=== PATIENT | female | born 1935 | race Caucasian/White ===

== ENCOUNTER → 2018-03-25 12:10 | Outpatient (CLI) | payer MEDICARE, OTHER, SELFPAY ==
[2018-03-25 13:32] LABS: Albumin, Serum 3.9 g/dL (3.2-5.0); BUN 35 mg/dL (7-18); BUN/Creat Ratio 20.1 RATIO (10-20); Calcium,Total 10.5 mg/dL (8.5-10.1); Chloride 101 mmol/L (98-107); Creatinine, Serum 1.74 mg/dL (0.55-1.02); EST Glomerular Filtration Rate 30 mL/min (>60); Est Glom Filt Rate - Afr Amer 36 mL/min (>60); Glucose 132 mg/dL (74-106); Phosphorus 2.9 mg/dL (2.5-4.9); Sodium Level 136 mmol/L (136-145)
== END ==
PROVIDERS: Visit Provider Internal Medicine Nephrology
DX: N17.9 Acute kidney failure, unspecified (principal)
CPT/HCPCS: 36415; 80069

== ENCOUNTER → 2018-09-09 10:30 | Outpatient (CLI) | payer MEDICARE, SELFPAY ==
[2018-09-09 13:45] LABS: Microalbumin,Random Urine 65.7 mg/L (NO RANGE EST.)
== END ==
PROVIDERS: Visit Provider Internal Medicine Nephrology
DX: E11.9 Type 2 diabetes mellitus without complications (principal)
CPT/HCPCS: 82043; 82570

== ENCOUNTER → 2021-07-26 13:40 | Outpatient (CLI) | payer MEDICARE, OTHER, SELFPAY ==
[2021-07-26 17:00] LABS: Vitamin D,25 Hydroxy 40.9 ng/mL
[2021-08-01 14:09] LABS: Vitamin D 1,25-Dihydroxy 19.7 pg/mL (19.9-79.3)
== END ==
PROVIDERS: Visit Provider Internal Medicine Nephrology
DX: E83.52 Hypercalcemia (principal)
CPT/HCPCS: 36415; 82306; 82652

== ENCOUNTER 2021-11-02 11:00 | Outpatient (RCR) | payer MEDICARE, OTHER, SELFPAY ==
[2021-10-19 10:31] VITALS: BP 124/73; PULSE 92; TEMP 36.1
--- NOTE | 2021-10-19 10:58 | HP.PCM_ITS ---
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 Following replacement of her hip she underwent therapy at [facility] where the therapist noticed some cracking on her right heel. Patient's son looked at the right heel and noticed a dry darkened eschar at the posterior aspect of the of the heel. Her son states that his mom does not wear any shoes or things that rub the back of her heel. He states that she sits in a recliner with her feet dangling off the edge with no pressure to the heel. He states when she sleeps it is in a hospital bed and she will occasionally dangle the right foot off of the bed. They were instructed by the therapist to be seen in the wound care center for close following. She admits to being a diabetic and demonstrates no localized signs of infection about the left heel and denies any constitutional symptoms. ROS Constitutional Constitutional: Denies change in weight, chills, fatigue or fever(s) Eyes Eyes: Denies double vision, dry eyes or eye pain ENT HEENT: Denies ear pain, headache(s), nasal congestion or nasal discharge Cardiovascular Cardiovascular: Denies chest pain, claudication or dyspnea Respiratory/Chest Respiratory/Chest: Denies cough, shortness of breath at rest or wheezing Gastrointestinal Gastrointestinal: Denies abdominal pain, constipation, diarrhea, nausea or vomiting Genitourinary Genitourinary: Denies dysuria, hematuria, urinary hesitancy or urinary urgency Musculoskeletal Musculoskeletal: Denies joint pain, joint stiffness, joint swelling or tingling Integumentary Integumentary: Denies alopecia, jaundice, nail changes or rash Neurologic Neurologic: Denies memory loss, numbness, seizures, syncope or weakness Psychiatric Psychiatric: Denies anxiety or depression Endocrine Endocrinology: Denies cold intolerance, heat intolerance, polydipsia or polyuria Hematologic/Lymphatic Hematologic/Lymphatic: Denies easy bleeding or easy bruising Vital Signs Vital Signs Vital Signs: 10/19/21 10:31 Temperature 97.0 F L Temperature Source Temporal Pulse Rate 92 Blood Pressure 124/73 H Blood Pressure Mean 90 Blood Pressure Source Monitor Blood Pressure Position Sitting Blood Pressure Location Left Arm Physical Exam Const alert, oriented x3 and no apparent distress General Appearance: cooperative and comfortable HEENT normocephalic Eyes General Eye: normal appearance of both eyes Neck General: normal visual inspection Lymph Lymphatic: no lymphadenopathy noted and no lymphedema noted Resp normal respiratory effort Cardio regular rate and regular rhythm Extremity Peripheral Pulses: Yes posterior tibial pulses present and dorsalis pedis pulses present Skin no rashes or lesions noted, skin turgor normal and no jaundice Skin Narrative: Eschar noted to the right posterior heel. Webspaces are clean, dry, and intact. General Skin Exam: eschar Wound Narrative: Right posterior heel stable eschar with no erythema, no malodor, no purulent drainage, or localized signs of infection. Eschar bed demonstrates no palpable fluctuance. No pain to palpation to the eschar or surrounding skin. Skin surrounding ulceration is intact/atrophic and healthy- appearing. Neuro oriented x3 and moves all extremities Motor Exam: strength 5/5 throughout and clonus absent Debridement Note Debridement Note No debridement was completed: No debridement was completed today Post-Debridement Measurements and Additional Note: Post-Debridement Measurements/Treatment RADHA - Nurse 1 - General Ulcer Assessment Start: 10/19/21 10:30 Freq: Status: Active Protocol: AYSE Activity Type Activity Date Activity User E-Sign Co-Sign Detail Recorded Client Recorded Date Recorded By Document 10/19/21 10:31 JONO [id number] 10/19/21 10:45 JONO 10/19/21 10:31 - Today's Visit Information Type of service Initial Visit Arrival Mode Wheelchair Patient Identification Verified (Name & Yes ) Finger Stick Blood Sugar(mg/dl) (if 201 indicated): Blood Sugar Stated by Patient Vital Signs Temperature (97.8 F-99.1 F) 97.0 F L Temperature Source Temporal Pulse Rate (60-100) 92 Pulse Location Monitor Blood Pressure (90/60-120/80) 124/73 H Blood Pressure Mean 90 Source Monitor Position Sitting Blood Pressure Location Left Arm History Since Last Visit- (Skip if this is Patient's initial visit) Have you changed medications since your No last visit? Any new allergies or adverse reactions No Had a fall/change in ADL's that may No increase risk of falls Signs or symptoms of abuse and/or No neglect since last visit Have you been in the hospital since your No last visit? Has dressing in place as prescribed Yes Has compression in place as prescribed N/A Has offloadiing in place as prescribed N/A Experienced any changes in pain level or No management Left Footwear Regular Shoe Right Footwear Regular Shoe Pain Scale: 0-10 Numeric Is Patient Pain Free? Yes - Nurse 1 - General Ulcer Measurement Start: 10/19/21 10:30 Freq: Status: Active Protocol: Activity Type Activity Date Activity User E-Sign Co-Sign Detail Recorded Client Recorded Date Recorded By Document 10/19/21 10:31 JONO [id number] 10/19/21 10:45 JONO 10/19/21 10:31 Wound Center Nurse 1 #1 Right Heel Cluster -Current Size (cm) - Length 3.5 -Current Size (cm) - Width 2 -Current Size (cm) - Depth 0.1 -Total Square Cm 7.0 -Exudate Amt Small -Exudate Type Serosanguineous -Wound Margin Distinct, Outline Attached -Necrosis Amt Large (67-100%) -Necrotic Tissue Type Eschar -Texture (Kendy-wound Skin Appearance) Assessed, Scarring -Moisture (Kedny-wound Skin Appearance) No Abnormality, Assessed -Color (Kendy-wound Skin Appearance) No Abnormality, Assessed -Temperature (Kendy-wound Skin No Abnormality Appearance) (Pt Warm) -Tenderness on Palpation (Kendy-wound No Skin Appearance) -Ulcer Cleansing Rinsed/ Irrigated with Saline -Foul Odor after Cleansing No -Anesthetic Used 4% Lidocaine Solution Right Calf (cm) 33.6 Right Ankle (cm) 19.1 Point of measurement (cm from the medial 29.6 instep) Point of Measurement (cm from the medial 19.9 instep) Assessment/Plan Assessment/Plan (1) Decubitus ulcer of right heel, stage 3: CODE(S): L89.613 - Pressure ulcer of right heel, stage 3 (2) Diabetes mellitus with diabetic polyneuropathy: CODE(S): E11.42 - Type 2 diabetes mellitus with diabetic polyneuropathy PLAN: This is an 86-year-old female who was seen in the wound care center for a decubitus ulcer of the right heel, unstageable secondary to eschar, likely stage III complicated by 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 Ulceration site demonstrates no localized signs of infection or palpable fluctuance. No pain to the ulceration site at the posterior aspect of the heel just inferior to the insertion of the Achilles tendon. I discussed the use of the enzymatic debrider Santyl with the patient and her son today. They are instructed to apply a small amount that is nickel sized in thickness to the ulceration site daily with moistened gauze and dry sterile dressing. I am prescribing Santyl 250 units/gram, dispense one 90 g tube to be applied daily to the wound site. I discussed the importance of offloading of the right heel while she is in her hospital bed sleeping. I instructed the patient to purchase soft foam offloadi ng boots to be worn on both feet while she remains in bed. I discussed until he gets the offloading boots that she is to place a soft pillow under her legs with no pressure her heels while she remains in bed. Patient and son voiced understanding of this. I will continue to follow and monitor her for any signs and changes as she continues to use her Santyl daily. Debridement will be performed once eschar has undergone sufficient enzymatic debridement. I discussed with the patient and her son signs of a progressing infection. They are to observe for any redness that moves up the leg, purulent drainage from the wound site, malodor from the wound site, or if she experiences any nausea, vomiting, fever, chills that these are signs of a progressing infection and she is to report to the ED. Patient and son voiced understanding of this. I reviewed and discussed his case today. Debridement was performed today as noted in the clinical panel to all of the ulcer sites. The following work up and care recommendations were made: Dressing: Santyl and dry sterile dressings, change daily Wash: Soap and water Tissue growth optimization: Santyl Offload: Elevation of the lower extremities and foam offloading boot to both heels Vascular: Palpable pedal pulses Edema: No soft tissue edema, patient instructed to elevate extremities when at rest Infection: No localized signs of infection Pain: Patient may take [id number] Tylenol extra strength for any pain or discomfort Host factors: Diabetes mellitus type 2 with peripheral polyneuropathy, recent hip replacement, pressure to the heel I answered all the patient's questions. To return to the wound healing center in 1 week or call sooner if the patient has any questions or concerns. The problems addressed require a low medical decision making level which includes two or more minor problems, a stable chronic illness, or an acute uncomplicated illness or injury. The medical decision making level is low. There is noted low risk of morbidity after considering this treatment plan and diagnostic data. Note: [email or web address] speech recognition motion picture set grip software was used to create portions of this document. Sound-alike and misspelled words, as well as other motion picture set grip errors may be contained in the documentation.
[2021-11-02 11:29] VITALS: BP 122/74; PULSE 74; TEMP 35.6
--- NOTE | 2021-11-02 12:56 | PN.PCM_ITS ---
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 Following replacement of her hip she underwent therapy at [facility] where the therapist noticed some cracking on her right heel. Patient's son looked at the right heel and noticed a dry darkened eschar at the posterior aspect of the of the heel. Her son states that his mom does not wear any shoes or things that rub the back of her heel. He states that she sits in a recliner with her feet dangling off the edge with no pressure to the heel. He states when she sleeps it is in a hospital bed and she will occasionally dangle the right foot off of the bed. They were instructed by the therapist to be seen in the wound care center for close following. She admits to being a diabetic and demonstrates no localized signs of infection about the left heel and denies any constitutional symptoms. Subjective Subjective This is an 86-year-old female who presents for follow-up of a right posterior heel ulceration. She is accompanied by her son today who states they have been continuing to apply the Santyl to the back of the heel at the eschar site. They are continuing with the offloading by the waffle boots as instructed. Her son states that he notices the ulceration site is improving. She denies any nausea, vomiting, fever, chills, shortness of breath, or other constitutional symptoms today. Objective Data Objective Data Vital Signs: Vital Signs Temp Pulse BP 96.0 F L 74 122/74 H 11/02/21 11:29 11/02/21 11:29 11/02/21 11:29 Physical Exam Const alert, oriented x3 and no apparent distress General Appearance: cooperative and comfortable HEENT normocephalic Eyes General Eye: normal appearance of both eyes Neck General: normal visual inspection Lymph Lymphatic: no lymphadenopathy noted and no lymphedema noted Resp normal respiratory effort Cardio regular rate and regular rhythm Skin no rashes or lesions noted, skin turgor normal and no jaundice Skin Narrative: Eschar noted to the right posterior heel. Webspaces are clean, dry, and intact. General Skin Exam: eschar Wound Narrative: Right posterior heel stable decreasing eschar and fibrous ti ssue with no erythema, no malodor, no purulent drainage, or localized signs of infection. Eschar bed demonstrates no palpable fluctuance. No pain to palpation to the eschar or surrounding skin. Skin surrounding ulceration is intact/atrophic and healthy-appearing. Neuro oriented x3 and moves all extremities Motor Exam: strength 5/5 throughout and clonus absent Debridement Note Debridement Note Wound debrided: Right posterior heel Laterality: Right Wound Grade/Stage: Rasmussen stage I Type of Debridement: Excisional debridement Anesthesia Used: 4% Lidocaine Solution Depth: Down to and including healthy tissue and in the subcutaneous layer Percentage of wound debrided: 100 Instrument Used: 3mm curette Tissue Removed: Fibrous, devitalized subcutaneous, biofilm, slough Severity: Fat Layer Exposed Amount of bleeding with debridement: Mild Bleeding Controlled with: Compression and gauze Patient tolerated procedure: Patient tolerated procedure well Post-Debridement Measurements and Additional Note: Post-Debridement Measurements/Treatment - Nurse 1 - General Ulcer Assessment Start: 10/19/21 10:30 Freq: Status: Active Protocol: AYSE Activity Type Activity Date Activity User E-Sign Co-Sign Detail Recorded Client Recorded Date Recorded By Document 10/19/21 10:31 [id number] 10/19/21 10:45 KR Document 11/02/21 11:29 [id number] 11/02/21 11:30 KR 10/19/21 11/02/21 10:31 11:29 - Today's Visit Information Type of service Initial Visit Follow-up Visit (Physician/INJECTOR ASSEMBLER ) Arrival Mode Wheelchair Wheelchair Accompanied by son Patient Identification Verified (Name & Yes Yes ) Finger Stick Blood Sugar(mg/dl) (if 201 indicated): Blood Sugar Stated by Patient Vital Signs Temperature (97.8 F-99.1 F) 97.0 F L 96.0 F L Temperature Source Temporal Temporal Pulse Rate (60-100) 92 74 Pulse Location Monitor Monitor Blood Pressure (90/60-120/80) 124/73 H 122/74 H Blood Pressure Mean (mm Hg) 90 90 Source Monitor Monitor Position Sitting Sitting Blood Pressure Location Left Arm Right Arm History Since Last Visit- (Skip if this is Patient's initial visit) Have you changed medications since your No No last visit? Any new allergies or adverse reactions No No Had a fall/change in ADL's that may No No increase risk of falls Signs or symptoms of abuse and/or No No neglect since last visit Have you been in the hospital since your No No last visit? Has dressing in place as prescribed Yes Yes Has compression in place as prescribed N/A N/A Has offloadiing in place as prescribed N/A N/A Experienced any changes in pain level or No No management Left Footwear Regular Shoe Regular Shoe Right Footwear Regular Shoe Regular Shoe Pain Scale: 0-10 Numeric Is Patient Pain Free? Yes Yes WC - Nurse 1 - General Ulcer Measurement Start: 10/19/21 10:30 Freq: Status: Active Protocol: Activity Type Activity Date Activity User E-Sign Co-Sign Detail Recorded Client Recorded Date Recorded By Document 10/19/21 10:31 JONO [id number] 10/19/21 10:45 KR Document 11/02/21 11:29 KR [id number] 11/02/21 11:30 KR 10/19/21 11/02/21 10:31 11:29 Wound Center Nurse 1 #1 Right Heel Cluster -Current Size (cm) - Length 3.5 0.1 -Current Size (cm) - Width 2 0.1 -Current Size (cm) - Depth 0.1 0.1 -Total Square Cm 7.0 0.01 -Exudate Amt Small None Present -Exudate Type Serosanguineous Serosanguineous -Wound Margin Distinct, Distinct, Outline Outline Attached Attached -Granulation Amt Small (1-33%) -Granulation Quality Pale -Necrosis Amt Large (67-100%) None Present (0 %) -Necrotic Tissue Type Eschar -Texture (Kendy-wound Skin Appearance) Assessed, Assessed, Scarring Scarring -Moisture (Kendy-wound Skin Appearance) No Abnormality, Assessed,Dry/ Assessed Scaly -Color (Kendy-wound Skin Appearance) No Abnormality, No Abnormality, Assessed Assessed -Temperature (Kendy-wound Skin No Abnormality No Abnormality Appearance) (Pt Warm) (Pt Warm) -Tenderness on Palpation (Kendy-wound No No Skin Appearance) -Ulcer Cleansing Rinsed/ Rinsed/ Irrigated with Irrigated with Saline Saline -Foul Odor after Cleansing No No -Anesthetic Used 4% Lidocaine 5% Lidocaine Solution Gel Right Calf (cm) 33.6 Right Ankle (cm) 19.1 Point of measurement (cm from the medial 29.6 instep) Point of Measurement (cm from the medial 19.9 instep) WC - Nurse 2 - General Ulcer CM Notes Start: 10/19/21 10:30 Freq: Status: Active Protocol: Activity Type Activity Date Activity User E-Sign Co-Sign Detail Recorded Client Recorded Date Recorded By Document 10/19/21 15:46 PL [id number] 10/19/21 15:46 PL 10/19/21 15:46 Wound Center Nurse 2 -Procedure Performed No -Tissue Removed Subcutaneous Pain Scale: 0-10 Numeric Is Patient Pain Free? Yes WC - Nurse 3 - General Ulcer D/C NN Start: 10/19/21 10:30 Freq: Status: Active Protocol: Activity Type Activity Date Activity User E-Sign Co-Sign Detail Recorded Client Recorded Date Recorded By Document 10/19/21 12:03 KR [id number] 10/19/21 12:03 KR Document 11/02/21 12:05 KR [id number] 11/02/21 12:05 KR 10/19/21 11/02/21 12:03 12:05 Wound Care Nurse 3 #1 Right Heel Cluster -Ulcer Cleansing Rinsed/ Rinsed/ Irrigated with Irrigated with Saline Saline -Primary Dressing Applied C Hydrogel ($) C Hydrogel ($) -Primary Dressing Covered/Secured with Dry Gauze,Dry Dry Gauze,Dry Gauze & Roll Gauze & Roll Gauze,Secured Gauze,Secured with Tape with Tape Pain Scale: 0-10 Numeric Is Patient Pain Free? Yes Yes WC - Visit Discharge Discharge Condition Stable Stable Ambulatory Status Wheelchair Wheelchair Transportation Private Auto Private Auto Accompanied by son son Assessment/Plan Assessment/Plan (1) Decubitus ulcer of right heel, stage 3: CODE(S): L89.613 - Pressure ulcer of right heel, stage 3 (2) Diabetes mellitus with diabetic polyneuropathy: CODE(S): E11.42 - Type 2 diabetes mellitus with diabetic polyneuropathy PLAN: This is an 86-year-old female who was seen in the wound care center for a decubitus ulcer of the right heel, unstageable secondary to eschar, likely stage III complicated by 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 Ulceration site demonstrates no localized signs of infection or palpable fluctuance. They are continuing to apply the Santyl to the ulcerative site and there is noted less eschar today. Ulcerative site sharply debrided with a 3 mm curette to patient tolerance. I discussed the importance of continued offloading of the right heel with soft foam offloading boots while she is in her hospital bed sleeping. Patient and son voiced understanding of this. I will continue to follow and monitor her for any signs and changes as she continues to use her Santyl daily. I discussed with the patient and her son signs of a progressing infection. They are to observe for any redness that moves up the leg, purulent drainage from the wound site, malodor from the wound site, or if she experiences any nausea, vomiting, fever, chills that these are signs of a progressing infection and she is to report to the ED. Patient and son voiced understanding of this. I reviewed and discussed his case today. Debridement was performed today as noted in the clinical panel to all of the ulcer sites. The following work up and care recommendations were made: Dressing: Santyl and dry sterile dressings, change daily Wash: Soap and water Tissue growth optimization: Santyl Offload: Elevation of the lower extremities and foam offloading boot to both heels Vascular: Palpable pedal pulses Edema: No soft tissue edema, patient instructed to elevate extremities when at rest Infection: No localized signs of infection Pain: Patient may take [id number] Tylenol extra strength for any pain or discomfort Host factors: Diabetes mellitus type 2 with peripheral polyneuropathy, recent hip replacement, pressure to the heel I answered all the patient's questions. To return to the wound healing center in 2 weeks or call sooner if the patient has any questions or concerns. Note: [email or web address] speech recognition production coordinator software was used to create portions of this document. Sound-alike and misspelled words, as well as other production coordinator errors may be contained in the documentation.
== END 2021-11-02 23:59 | disposition home or self-care (01) ==
LOC: WC 11:00
PROVIDERS: PCP Preventive Medicine Occupational Medicine; Visit Provider Student in an Organized Health Care Education/Training Program
DX: L89.613 Pressure ulcer of right heel, stage 3 (principal); E11.42 Type 2 diabetes mellitus with diabetic polyneuropathy
CPT/HCPCS: 11042; 99213; G0463

== ENCOUNTER 2021-11-30 10:45 | Outpatient (RCR) | payer MEDICARE, OTHER, SELFPAY ==
[2021-11-03 00:51] VITALS: BP 122/74; PULSE 74; TEMP 35.6
[2021-11-16 11:21] VITALS: BP 125/64; PULSE 88; TEMP 35.7
--- NOTE | 2021-11-16 12:50 | PCM.WC.PN ---
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 Following replacement of her hip she underwent therapy at [facility] where the therapist noticed some cracking on her right heel. Patient's son looked at the right heel and noticed a dry darkened eschar at the posterior aspect of the of the heel. Her son states that his mom does not wear any shoes or things that rub the back of her heel. He states that she sits in a recliner with her feet dangling off the edge with no pressure to the heel. He states when she sleeps it is in a hospital bed and she will occasionally dangle the right foot off of the bed. They were instructed by the therapist to be seen in the wound care center for close following. She admits to being a diabetic and demonstrates no localized signs of infection about the left heel and denies any constitutional symptoms. Subjective Subjective This is an 86-year-old female who presents for follow-up of her right posterior heel ulceration. She is accompanied today by her [id number]. She informs me they are still continuing to apply the Santyl with dressing changes daily to her wound site. They are also still continuing to offload both feet with the waffle boots as instructed. She denies any constitutional symptoms today. She has no other complaints today. Objective Data Objective Data Vital Signs: Vital Signs Temp Pulse BP 96.3 F L 88 125/64 H 11/16/21 11:21 11/16/21 11:21 11/16/21 11:21 Physical Exam Const alert, oriented x3 and no apparent distress General Appearance: cooperative and comfortable HEENT normocephalic Eyes General Eye: normal appearance of both eyes Neck General: normal visual inspection Lymph Lymphatic: no lymphadenopathy noted and no lymphedema noted Resp normal respiratory effort Cardio regular rate and regular rhythm Extremity normal capillary refill, no calf tenderness and no pedal edema Peripheral Pulses: Yes posterior tibial pulses present and dorsalis pedis pulses present Skin no rashes or lesions noted, skin turgor normal and no jaundice Skin Narrative: Mixed eschar and fibrotic tissue noted to the posterior right heel. Surrounding skin is healthy appearing and atrophic. Webspaces are clean, dry, and intact. Wound Narrative: Right posterior heel demonstrates a stable decreasing eschar with mixed fibrotic tissue. There is no localized erythema, no malodor, no purulent drainage, or other localized signs of infection. Ulcerative site demonstrates no palpable fluctuance or crepitus within the tissue. No pain to palpation of the ulcerative wound bed. There is pain to palpation surrounding the ulcerative rim. Surrounding skin is intact/atrophic and healthy appearing Neuro oriented x3 and moves all extremities Motor Exam: strength 5/5 throughout Debridement Note Debridement Note Wound debrided: Right posterior heel Laterality: Right Wound Grade/Stage: Rasmussen stage III Type of Debridement: Excisional debridement Anesthesia Used: 4% Lidocaine Solution Depth: Down to and including healthy tissue and in the subcutaneous layer Percentage of wound debrided: 100 Instrument Used: 3mm curette and #15 blade Tissue Removed: Fibrous, devitalized subcutaneous, biofilm, slough Severity: Fat Layer Exposed Amount of bleeding with debridement: Mild Bleeding Controlled with: Pressure Patient tolerated procedure: Patient tolerated procedure well Post-Debridement Measurements and Additional Note: Post-Debridement Measurements/Treatment WC - Nurse 1 - General Ulcer Assessment Start: 11/16/21 11:21 Freq: Status: Active Protocol: AYSE Activity Type Activity Date Activity User E-Sign Co-Sign Detail Recorded Client Recorded Date Recorded By Document 11/16/21 11:21 ALBER [id number] 11/16/21 11:23 ALBER 11/16/21 11:21 - Today's Visit Information Type of service Follow-up Visit (Physician/JAIL OFFICER ) Arrival Mode Wheelchair Accompanied by daughter Patient Identification Verified (Name & Yes ) Patient Requires Transmission-Based No Precautions Safety Precautions NA Vital Signs Temperature (97.8 F-99.1 F) 96.3 F L Temperature Source Temporal Pulse Rate (60-100) 88 Pulse Location Monitor Blood Pressure (90/60-120/80) 125/64 H Blood Pressure Mean (mm Hg) 84 Source Monitor History Since Last Visit- (Skip if this is Patient's initial visit) Have you changed medications since your No last visit? Any new allergies or adverse reactions No Had a fall/change in ADL's that may No increase risk of falls Signs or symptoms of abuse and/or No neglect since last visit Have you been in the hospital since your No last visit? Has dressing in place as prescribed Yes Has compression in place as prescribed N/A Has offloadiing in place as prescribed N/A Experienced any changes in pain level or No management Left Footwear Slipper Right Footwear Slipper Pain Scale: 0-10 Numeric Is Patient Pain Free? Yes WC - Nurse 1 - General Ulcer Measurement Start: 11/16/21 11:21 Freq: Status: Active Protocol: Activity Type Activity Date Activity User E-Sign Co-Sign Detail Recorded Client Recorded Date Recorded By Document 11/16/21 11:21 AK [id number] 11/16/21 11:23 AK 11/16/21 11:21 Wound Center Nurse 1 #1 Right Heel Cluster -Combined with other wound No -Current Size (cm) - Length 1.4 -Current Size (cm) - Width 1.6 -Current Size (cm) - Depth 0.1 -Total Square Cm 2.24 -Photo Taken No -Epithelialization None Present -Tunneling No -Undermining/Tunneling No -Circular Undermining No -Classification - Thickness Partial Thickness -Change in Wound Grade/Stage No -Exudate Amt Medium -Exudate Type Serosanguineous -Wound Margin Distinct, Outline Attached -Granulation Amt Small (1-33%) -Granulation Quality Pale,Brenda -Slough/Fibrin Yes -Necrosis Amt Medium (34-66%) -Necrotic Tissue Type Adherent Slough -Structure Exposed N/A -Texture (Kendy-wound Skin Appearance) No Abnormality, Assessed -Moisture (Kendy-wound Skin Appearance) Assessed,Dry/ Scaly -Color (Kendy-wound Skin Appearance) Assessed, Erythema -Temperature (Kendy-wound Skin No Abnormality Appearance) (Pt Warm) -Tenderness on Palpation (Kendy-wound No Skin Appearance) -Ulcer Cleansing Rinsed/ Irrigated with Saline -Foul Odor after Cleansing No -Anesthetic Used 5% Lidocaine Gel WC - Nurse 3 - General Ulcer D/C NN Start: 11/16/21 11:21 Freq: Status: Active Protocol: Activity Type Activity Date Activity User E-Sign Co-Sign Detail Recorded Client Recorded Date Recorded By Document 11/16/21 11:59 ML [id number] 11/16/21 12:01 ML 11/16/21 11:59 Wound Care Nurse 3 -Ulcer Cleansing Rinsed/ Irrigated with Saline -Foul Odor after Cleansing No -Other Dressing hydrogel -Primary Dressing Covered/Secured with Dry Gauze & Roll Gauze, Secured with Tape Pain Scale: 0-10 Numeric Is Patient Pain Free? Yes WC - Visit Discharge Discharge Condition Stable Ambulatory Status Wheelchair Transportation Private Auto Medication Reconcilliation completed & No provided to patient/care provider Clinical Summary of Care Provided Yes Assessment/Plan Assessment/Plan (1) Decubitus ulcer of right heel, stage 3: CODE(S): L89.613 - Pressure ulcer of right heel, stage 3 (2) Diabetes mellitus with diabetic polyneuropathy: CODE(S): E11.42 - Type 2 diabetes mellitus with diabetic polyneuropathy PLAN: This is an 86-year-old female who was seen in the wound care center for a decubitus ulcer of the right heel, unstageable secondary to eschar, likely stage III complicated by 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 Ulceration site demonstrates no localized signs of infection or palpable fluctuance. They are continuing to apply the Santyl to the ulcerative site and there is noted less eschar today. Ulcerative site sharply debrided with a 3 mm curette and #15 blade to patient tolerance. I discussed the importance of continued offloading of the right heel with soft foam offloading boots while she is in her hospital bed sleeping. Patient and [id number] voiced understanding of this. I will continue to follow and monitor her for any signs and changes as she continues to use her Santyl daily. I discussed with the patient and her [id number] signs of a progressing infection. They are to observe for any redness that moves up the leg, purulent drainage from the wound site, malodor from the wound site, or if she experiences any nausea, vomiting, fever, chills that these are signs of a progressing infection and she is to report to the ED. Patient and [id number] voiced understanding of this. I reviewed and discussed her case today. Debridement was performed today as noted in the clinical panel to all of the ulcer sites. 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 To return to the wound healing center in 2 weeks or call sooner if the patient has any questions or concerns. Note: [employer] speech recognition hemodialysis charge nurse software was used to create portions of this document. Sound-alike and misspelled words, as well as other hemodialysis charge nurse errors may be contained in the documentation.
[2021-11-30 10:46] VITALS: BP 115/65; PULSE 82; RESP 16; TEMP 35.2
--- NOTE | 2021-11-30 12:08 | PN.PCM_ITS ---
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 Following replacement of her hip she underwent therapy at [facility] where the therapist noticed some cracking on her right heel. Patient's son looked at the right heel and noticed a dry darkened eschar at the posterior aspect of the of the heel. Her son states that his mom does not wear any shoes or things that rub the back of her heel. He states that she sits in a recliner with her feet dangling off the edge with no pressure to the heel. He states when she sleeps it is in a hospital bed and she will occasionally dangle the right foot off of the bed. They were instructed by the therapist to be seen in the wound care center for close following. She admits to being a diabetic and demonstrates no localized signs of infection about the left heel and denies any constitutional symptoms. Subjective Subjective This is an 86-year-old female who presents for follow-up of her right posterior heel ulceration. She is accompanied today by her son. He informs me they are still continuing to apply the Santyl with dressing changes daily to her wound site. They are also still continuing to offload both feet with the waffle boots as instructed. She denies any constitutional symptoms today. She has no other complaints today. Objective Data Objective Data Vital Signs: Vital Signs Temp Pulse Resp BP 95.4 F L 82 16 115/65 11/30/21 10:46 11/30/21 10:46 11/30/21 10:46 11/30/21 10:46 Physical Exam Const alert, oriented x3 and no apparent distress General Appearance: cooperative and comfortable HEENT normocephalic Eyes General Eye: normal appearance of both eyes Neck General: normal visual inspection Lymph Lymphatic: no lymphadenopathy noted and no lymphedema noted Resp normal respiratory effort Cardio regular rate and regular rhythm Extremity normal capillary refill, no calf tenderness and no pedal edema Skin no rashes or lesions noted, skin turgor normal and no jaundice Skin Narrative: Mixed eschar and fibrotic tissue noted to the posterior right heel. Surrounding skin is healthy appearing and atrophic. Webspaces are clean, dry, and intact. Wound Narrative: Right posterior heel demonstrates a stable decreasing eschar with mixed fibrotic tissue. There is no localized erythema, no malodor, no purulent drainage, or other localized signs of infection. Ulcerative site demonstrates no palpable fluctuance or crepitus within the tissue. No pain to palpation of the ulcerative wound bed. There is pain to palpation surrounding the ulcerative rim. Surrounding skin is intact/atrophic and healthy appearing Neuro oriented x3 and moves all extremities Motor Exam: strength 5/5 throughout Debridement Note Debridement Note Wound debrided: Right plantar heel Laterality: Right Wound Grade/Stage: Rasmussen stage III Type of Debridement: Excisional debridement Anesthesia Used: 4% Lidocaine Solution Depth: Down to and including healthy tissue and in the subcutaneous layer Percentage of wound debrided: 100 Instrument Used: #15 blade and Forceps Tissue Removed: Fibrous, devitalized subcutaneous, biofilm, slough Severity: Fat Layer Exposed Amount of bleeding with debridement: Mild Bleeding Controlled with: Compression and gauze Patient tolerated procedure: Patient tolerated procedure well Post-Debridement Measurements and Additional Note: Post-Debridement Measurements/Treatment RADHA - Nurse 1 - General Ulcer Assessment Start: 11/16/21 11:21 Freq: Status: Active Protocol: AYSE Activity Type Activity Date Activity User E-Sign Co-Sign Detail Recorded Client Recorded Date Recorded By Document 11/16/21 11:21 ALBER [id number] 11/16/21 11:23 AK Document 11/30/21 10:46 [id number] 11/30/21 10:54 KEYONA 11/16/21 11/30/21 11:21 10:46 - Today's Visit Information Type of service Follow-up Visit Follow-up Visit (Physician/LODGE SALES ASSOCIATE (Physician/LODGE SALES ASSOCIATE ) ) Arrival Mode Wheelchair Ambulatory, Wheelchair Accompanied by daughter son Patient Identification Verified (Name & Yes Yes ) Patient Requires Transmission-Based No No Precautions Safety Precautions NA Finger Stick Blood Sugar(mg/dl) (if 153 indicated): Blood Sugar Stated by Patient Vital Signs Temperature (97.8 F-99.1 F) 96.3 F L 95.4 F L Temperature Source Temporal Temporal Pulse Rate (60-100) 88 82 Pulse Location Monitor Monitor Respiratory Rate (12-18) 16 Respiratory rate source Observation Blood Pressure (90/60-120/80) 125/64 H 115/65 Blood Pressure Mean (mm Hg) 84 81 Source Monitor Monitor Position Semi-Fowlers Blood Pressure Location Left Arm History Since Last Visit- (Skip if this is Patient's initial visit) Have you changed medications since your No No last visit? Any new allergies or adverse reactions No No Had a fall/change in ADL's that may No No increase risk of falls Signs or symptoms of abuse and/or No No neglect since last visit Have you been in the hospital since your No No last visit? Has dressing in place as prescribed Yes Yes Has compression in place as prescribed N/A N/A Has offloadiing in place as prescribed N/A Yes Experienced any changes in pain level or No No management Left Footwear Slipper Slipper Right Footwear Slipper Slipper Pain Scale: 0-10 Numeric Is Patient Pain Free? Yes Yes WC - Nurse 1 - General Ulcer Measurement Start: 11/16/21 11:21 Freq: Status: Active Protocol: Activity Type Activity Date Activity User E-Sign Co-Sign Detail Recorded Client Recorded Date Recorded By Document 11/16/21 11:21 ME [id number] 11/16/21 11:23 ME Document 11/30/21 10:46 [id number] 11/30/21 10:54 11/16/21 11/30/21 11:21 10:46 Wound Center Nurse 1 #1 Right Heel Cluster -Combined with other wound No No -Current Size (cm) - Length 1.4 1.4 -Current Size (cm) - Width 1.6 1.7 -Current Size (cm) - Depth 0.1 0.2 -Total Square Cm 2.24 2.38 -Photo Taken No No -Epithelialization None Present None Present -Tunneling No No -Undermining/Tunneling No No -Circular Undermining No No -Classification - Thickness Partial Thickness -Change in Wound Grade/Stage No -Exudate Amt Medium Small -Exudate Type Serosanguineous Serosanguineous -Wound Margin Distinct, Flat & Intact Outline Attached -Granulation Amt Small (1-33%) None Present (0 %) -Granulation Quality Pale,Brogan -Slough/Fibrin Yes Yes -Necrosis Amt Medium (34-66%) Large (67-100%) -Necrotic Tissue Type Adherent Slough Adherent Slough -Structure Exposed N/A N/A -Texture (Kendy-wound Skin Appearance) No Abnormality, Assessed Assessed -Moisture (Kendy-wound Skin Appearance) Assessed,Dry/ Assessed,Dry/ Scaly Scaly -Color (Kendy-wound Skin Appearance) Assessed, Assessed Erythema -Temperature (Kendy-wound Skin No Abnormality No Abnormality Appearance) (Pt Warm) (Pt Warm) -Tenderness on Palpation (Kendy-wound No No Skin Appearance) -Ulcer Cleansing Rinsed/ Rinsed/ Irrigated with Irrigated with Saline Saline -Foul Odor after Cleansing No No -Anesthetic Used 5% Lidocaine 4% Lidocaine Gel Solution Lower Limb Edema Present NA WC - Nurse 2 - General Ulcer CM Notes Start: 11/16/21 11:21 Freq: Status: Active Protocol: Activity Type Activity Date Activity User E-Sign Co-Sign Detail Recorded Client Recorded Date Recorded By Document 11/16/21 14:39 PL [id number] 11/16/21 14:40 PL 11/16/21 14:39 Wound Center Nurse 2 #1 Right Heel Cluster -Time 11:35 -Correct Patient Yes -Correct Side, Site, Position Yes -Correct Procedure Yes -Procedure Performed Yes -Type of Procedure Debridement -Clinical Debridement Subcutaneous -Tissue Removed Subcutaneous -Post Debridement (cm) - Length 1.4 -Post Debridement (cm) - Width 1.6 -Post Debridement (cm) - Depth 0.1 -Total Square (Post) (cm) 2.24 -Area of Debridement (cm) - Length 1.4 -Area of Debridement (cm) - Width 1.6 -Total Square (Area) (cm) 2.24 -Tunneling No -Undermining/Tunneling No -Circular Undermining No -Wound/Ulcer Outcome Not Healed -Ulcer Cleansing Rinsed/ Irrigated with Saline -Foul Odor after Cleansing No -Bioengineered Tissue No -Bleeding Controlled with Pressure -Treatment Response Procedure Tolerated Well -Debridement - Subq, 1st 20sq cm Yes Pain Scale: 0-10 Numeric Is Patient Pain Free? Yes WC - Nurse 3 - General Ulcer D/C NN Start: 11/16/21 11:21 Freq: Status: Active Protocol: Activity Type Activity Date Activity User E-Sign Co-Sign Detail Recorded Client Recorded Date Recorded By Document 11/16/21 11:59 ML [id number] 11/16/21 12:01 ML 11/16/21 11:59 Wound Care Nurse 3 #1 Right Heel Cluster -Ulcer Cleansing Rinsed/ Irrigated with Saline -Foul Odor after Cleansing No -Other Dressing hydrogel -Primary Dressing Covered/Secured with Dry Gauze & Roll Gauze, Secured with Tape Pain Scale: 0-10 Numeric Is Patient Pain Free? Yes WC - Visit Discharge Discharge Condition Stable Ambulatory Status Wheelchair Transportation Private Auto Medication Reconcilliation completed & No provided to patient/care provider Clinical Summary of Care Provided Yes Assessment/Plan Assessment/Plan (1) Decubitus ulcer of right heel, stage 3: CODE(S): L89.613 - Pressure ulcer of right heel, stage 3 (2) Diabetes mellitus with diabetic polyneuropathy: CODE(S): E11.42 - Type 2 diabetes mellitus with diabetic polyneuropathy PLAN: This is an 86-year-old female who was seen in the wound care center for a decubitus ulcer of the right heel, unstageable secondary to eschar, likely stage III complicated by 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 Ulceration site demonstrates no localized signs of infection or palpable fluct uance. They are continuing to apply the Santyl to the ulcerative site and there is noted less eschar today. Ulcerative site sharply debrided with a #15 blade to patient tolerance in the clinical panel above. I discussed the importance of continued offloading of the right heel with soft foam offloading boots while she is in her hospital bed sleeping. Patient and son voiced understanding of this. I will continue to follow and monitor her for any signs and changes as she continues to use her Santyl daily. I discussed with the patient and her son signs of a progressing infection. They are to observe for any redness that moves up the leg, purulent drainage from the wound site, malodor from the wound site, or if she experiences any nausea, vomiting, fever, chills that these are signs of a progressing infection and she is to report to the ED. Patient and [id number] voiced understanding of this. I reviewed and discussed her case today. Debridement was performed today as noted in the clinical panel to all of the ulcer sites. The following work up and care recommendations were made: Dressing: Santyl and dry sterile dressings, change daily Wash: Soap and water Tissue growth optimization: Santyl Offload: Elevation of the lower extremities and foam offloading boot to both heels Vascular: Palpable pedal pulses Edema: No soft tissue edema, patient instructed to elevate extremities when at rest Infection: No localized signs of infection Pain: Patient may take [id number] Tylenol extra strength for any pain or discomfort Host factors: Diabetes mellitus type 2 with peripheral polyneuropathy, recent hip replacement, pressure to the heel I answered all the patient's questions. To return to the wound healing center in 3 weeks or call sooner if the patient has any questions or concerns. Note: [employer] speech recognition clinical neuropsychologist software was used to create portions of this document. Sound-alike and misspelled words, as well as other clinical neuropsychologist errors may be contained in the documentation.
== END 2021-12-02 23:59 | disposition home or self-care (01) ==
LOC: WC 10:45
PROVIDERS: PCP Preventive Medicine Occupational Medicine; Visit Provider Student in an Organized Health Care Education/Training Program
DX: L89.610 Pressure ulcer of right heel, unstageable (principal); E11.42 Type 2 diabetes mellitus with diabetic polyneuropathy; Z96.649 Presence of unspecified artificial hip joint
CPT/HCPCS: 11042

== ENCOUNTER 2021-12-21 10:45 | Outpatient (RCR) | payer MEDICARE, OTHER, SELFPAY ==
[2021-12-03 00:41] VITALS: BP 115/65; PULSE 82; RESP 16; TEMP 35.2
[2021-12-21 12:08] VITALS: BP 110/65; PULSE 85; TEMP 35.5
--- NOTE | 2021-12-21 14:59 | PCM.WC.PN ---
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 Following replacement of her hip she underwent therapy at [facility] where the therapist noticed some cracking on her right heel. Patient's son looked at the right heel and noticed a dry darkened eschar at the posterior aspect of the of the heel. Her son states that his mom does not wear any shoes or things that rub the back of her heel. He states that she sits in a recliner with her feet dangling off the edge with no pressure to the heel. He states when she sleeps it is in a hospital bed and she will occasionally dangle the right foot off of the bed. They were instructed by the therapist to be seen in the wound care center for close following. She admits to being a diabetic and demonstrates no localized signs of infection about the left heel and denies any constitutional symptoms. Subjective Subjective This 86-year-old female presents to the wound care center for follow-up of a right plantar heel ulceration. She is accompanied by her son today. He has been continuing to change her dressings daily applying the Santyl to the heel. They have been continuing to offload with foam waffle boots while she sleeps in bed. She denies any constitutional symptoms today. She has no other complaints today. Objective Data Objective Data Vital Signs: Vital Signs Temp Pulse Resp BP 95.9 F L 85 16 110/65 12/21/21 12:08 12/21/21 12:08 12/03/21 00:41 12/21/21 12:08 Physical Exam Const alert, oriented x3 and no apparent distress General Appearance: cooperative and comfortable HEENT normocephalic Eyes General Eye: normal appearance of both eyes Neck General: normal visual inspection Lymph Lymphatic: no lymphadenopathy noted and no lymphedema noted Resp normal respiratory effort Cardio regular rate and regular rhythm Extremity normal capillary refill, no calf tenderness and no pedal edema Peripheral Pulses: Yes posterior tibial pulses present and dorsalis pedis pulses present Skin no rashes or lesions noted and no jaundice Skin Narrative: Skin is thin and atrophic Wound Narrative: Right plantar heel decubitus ulceration demonstrates thick yellow fibrotic tissue in the wound bed with rolled wound edges. There is no localized erythema, no malodor, no purulent drainage, or other localized signs of infection. Ulcerative site demonstrates no palpable fluctuance or crepitus within the tissue. No pain to palpation of the ulcerative wound bed. There is pain to palpation surrounding the ulcerative rim. Surrounding skin is intact/atrophic and healthy appearing. Neuro oriented x3 and moves all extremities Debridement Note Debridement Note Wound debrided: Right plantar heel Laterality: Right Wound Grade/Stage: Rasmussen stage III Type of Debridement: Excisional debridement Anesthesia Used: 5% Lidocaine Gel Depth: in the subcutaneous layer Percentage of wound debrided: 100 Instrument Used: #15 blade and - (Emay Softcomonix ultrasonic debrider) Tissue Removed: Fibrous, devitalized subcutaneous, biofilm, slough Severity: Fat Layer Exposed Amount of bleeding with debridement: Mild Bleeding Controlled with: Compression and gauze Patient tolerated procedure: Patient tolerated procedure well Post-Debridement Measurements and Additional Note: Post-Debridement Measurements/Treatment WC - Nurse 1 - General Ulcer Assessment Start: 12/21/21 11:57 Freq: Status: Active Protocol: AYSE Activity Type Activity Date Activity User E-Sign Co-Sign Detail Recorded Client Recorded Date Recorded By Document 12/21/21 12:08 ALBER [id number] 12/21/21 12:10 ALEBR 12/21/21 12:08 - Today's Visit Information Type of service Follow-up Visit (Physician/TRAILER TRUCK DRIVER ) Arrival Mode Ambulatory Patient Identification Verified (Name & Yes ) Patient Requires Transmission-Based No Precautions Vital Signs Temperature (97.8 F-99.1 F) 95.9 F L Temperature Source Temporal Pulse Rate (60-100) 85 Pulse Location Monitor Blood Pressure (90/60-120/80) 110/65 Blood Pressure Mean (mm Hg) 80 Source Monitor History Since Last Visit- (Skip if this is Patient's initial visit) Have you changed medications since your No last visit? Any new allergies or adverse reactions No Had a fall/change in ADL's that may No increase risk of falls Signs or symptoms of abuse and/or No neglect since last visit Have you been in the hospital since your No last visit? Has dressing in place as prescribed Yes Has compression in place as prescribed Yes Has offloadiing in place as prescribed N/A Experienced any changes in pain level or No management Left Footwear Regular Shoe Right Footwear Regular Shoe Pain Scale: 0-10 Numeric Is Patient Pain Free? Yes - Nurse 1 - General Ulcer Measurement Start: 12/21/21 11:57 Freq: Status: Active Protocol: Activity Type Activity Date Activity User E-Sign Co-Sign Detail Recorded Client Recorded Date Recorded By Document 12/21/21 12:08 ALBER [id number] 12/21/21 12:10 ALBER 12/21/21 12:08 Wound Center Nurse 1 #1 Right Heel Cluster -Combined with other wound No -Current Size (cm) - Length 1.2 -Current Size (cm) - Width 1.2 -Current Size (cm) - Depth 0.1 -Total Square Cm 1.44 -Date of Last Picture (Recall this 12/21/21 field) -Photo Taken Yes -Tunneling No -Undermining/Tunneling No -Circular Undermining No -Change in Wound Grade/Stage No -Exudate Amt Medium -Exudate Type Serosanguineous -Wound Margin Distinct, Outline Attached -Granulation Amt None Present (0 %) -Slough/Fibrin Yes -Necrosis Amt Large (67-100%) -Necrotic Tissue Type Adherent Slough -Structure Exposed N/A -Texture (Kendy-wound Skin Appearance) No Abnormality, Assessed -Moisture (Kendy-wound Skin Appearance) No Abnormality, Assessed -Color (Kendy-wound Skin Appearance) No Abnormality, Assessed -Temperature (Kendy-wound Skin No Abnormality Appearance) (Pt Warm) -Tenderness on Palpation (Kendy-wound No Skin Appearance) -Ulcer Cleansing Rinsed/ Irrigated with Saline -Foul Odor after Cleansing No -Anesthetic Used 4% Lidocaine Solution WC - Nurse 2 - General Ulcer CM Notes Start: 12/21/21 11:57 Freq: Status: Active Protocol: Activity Type Activity Date Activity User E-Sign Co-Sign Detail Recorded Client Recorded Date Recorded By Document 12/21/21 14:20 KENTRELL [id number] 12/21/21 14:21 PL 12/21/21 14:20 Wound Center Nurse 2 -Time 11:30 -Correct Patient Yes -Correct Side, Site, Position Yes -Correct Procedure Yes -Procedure Performed Yes -Type of Procedure Debridement -Clinical Debridement Subcutaneous -Tissue Removed Subcutaneous -Post Debridement (cm) - Length 1.2 -Post Debridement (cm) - Width 1.2 -Post Debridement (cm) - Depth 0.1 -Total Square (Post) (cm) 1.44 -Area of Debridement (cm) - Length 1.2 -Area of Debridement (cm) - Width 1.2 -Total Square (Area) (cm) 1.44 -Tunneling No -Undermining/Tunneling No -Circular Undermining No -Wound/Ulcer Outcome Not Healed -Ulcer Cleansing Rinsed/ Irrigated with Saline -Foul Odor after Cleansing No -Bioengineered Tissue No -Bleeding Controlled with Pressure -Treatment Response Procedure Tolerated Well -Debridement - Subq, 1st 20sq cm Yes Pain Scale: 0-10 Numeric Is Patient Pain Free? Yes - Nurse 3 - General Ulcer D/C NN Start: 12/21/21 11:57 Freq: Status: Active Protocol: Activity Type Activity Date Activity User E-Sign Co-Sign Detail Recorded Client Recorded Date Recorded By Document 12/21/21 11:57 [facility] [id number] 12/21/21 11:58 [facility] 12/21/21 11:57 Wound Care Nurse 3 #1 Right Heel Cluster -Ulcer Cleansing Rinsed/ Irrigated with Saline -Foul Odor after Cleansing No -Primary Dressing Applied Other -Other Dressing hyydrogel, heel hat -Primary Dressing Covered/Secured with Dry Gauze & Roll Gauze, Secured with Tape Treatment Response Procedure Tolerated Well Pain Scale: 0-10 Numeric Is Patient Pain Free? Yes - Visit Discharge Discharge Condition Stable Ambulatory Status Wheelchair Transportation Private Auto Accompanied by son Assessment/Plan Assessment/Plan (1) Decubitus ulcer of right heel, stage 3: CODE(S): L89.613 - Pressure ulcer of right heel, stage 3 (2) Diabetes mellitus with diabetic polyneuropathy: CODE(S): E11.42 - Type 2 diabetes mellitus with diabetic polyneuropathy PLAN: This is an 86-year-old female seen in the wound care center for a decubitus ulcer of the right heel, unstageable secondary to eschar, likely stage III complicated by 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 Ulceration site demonstrates no localized signs of infection or palpable fluctuance. They are continuing to apply the Santyl to the ulcerative site and there is thick yellow fibrotic tissue in the wound bed today. Ulcerative site sharply debrided with Misonix ultrasonic debrider and a #15 blade to patient tolerance in the clinical panel above. They are instructed to continue applying the Santyl to the site daily. I discussed the importance of continued offloading of the right heel with soft foam offloading boots while she is in her hospital bed sleeping. Patient and son voiced understanding of this. I will continue to follow and monitor her for any signs and changes as she continues to use her Santyl daily. I discussed with the patient and her son signs of a progressing infection. They are to observe for any redness that moves up the leg, purulent drainage from the wound site, malodor from the wound site, or if she experiences any nausea, vomiting, fever, chills that these are signs of a progressing infection and she is to report to the ED. Patient and [id number] voiced understanding of this. I reviewed and discussed her case today. Debridement was performed today as noted in the clinical panel to all of the ulcer sites. The following work up and care recommendations were made: Dressing: Santyl and dry sterile dressings, change daily Wash: Soap and water Tissue growth optimization: Santyl Offload: Elevation of the lower extremities and foam offloading boot to both heels Vascular: Palpable pedal pulses Edema: No soft tissue edema, patient instructed to elevate extremities when at rest Infection: No localized signs of infection Pain: Patient may take [id number] Tylenol extra strength for any pain or discomfort Host factors: Diabetes mellitus type 2 with peripheral polyneuropathy, recent hip replacement, pressure to the heel I answered all the patient's questions. To return to the wound healing center in 1 week or call sooner if the patient has any questions or concerns. Note: [employer] speech recognition computer analyst software was used to create portions of this document. Sound-alike and misspelled words, as well as other computer analyst errors may be contained in the documentation.
== END 2022-01-02 23:59 | disposition home or self-care (01) ==
LOC: WC 10:45
PROVIDERS: PCP Preventive Medicine Occupational Medicine; Visit Provider Student in an Organized Health Care Education/Training Program
DX: L89.613 Pressure ulcer of right heel, stage 3 (principal); E11.42 Type 2 diabetes mellitus with diabetic polyneuropathy; Z96.649 Presence of unspecified artificial hip joint
CPT/HCPCS: 11042

== ENCOUNTER 2022-01-18 10:45 | Outpatient (RCR) | payer MEDICARE, OTHER, SELFPAY ==
[2022-01-03 00:59] VITALS: BP 110/65; PULSE 85; RESP 16; TEMP 35.5
[2022-01-04 10:46] VITALS: BP 128/95; PULSE 84; RESP 18; TEMP 35.9
--- NOTE | 2022-01-04 18:24 | PN.PCM_ITS ---
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 Following replacement of her hip she underwent therapy at [facility] where the therapist noticed some cracking on her right heel. Patient's son looked at the right heel and noticed a dry darkened eschar at the posterior aspect of the of the heel. Her son states that his mom does not wear any shoes or things that rub the back of her heel. He states that she sits in a recliner with her feet dangling off the edge with no pressure to the heel. He states when she sleeps it is in a hospital bed and she will occasionally dangle the right foot off of the bed. They were instructed by the therapist to be seen in the wound care center for close following. She admits to being a diabetic and demonstrates no localized signs of infection about the left heel and denies any constitutional symptoms. Subjective Subjective This is an 87-year-old female who presents to the wound care center for a follow-up of a right plantar heel ulceration. She is accompanied by her son today. He is continuing to change her dressings daily applying Santyl to the heel. They have been continuing with the offloading with foam waffle boots as she sleeps in bed. She denies any constitutional symptoms today. She states she has no other complaints today. Objective Data Objective Data Vital Signs: Vital Signs Temp Pulse Resp BP 96.7 F L 84 18 128/95 H 01/04/22 10:46 01/04/22 10:46 01/04/22 10:46 01/04/22 10:46 Physical Exam Const alert, oriented x3 and no apparent distress General Appearance: cooperative and comfortable HEENT normocephalic Eyes General Eye: normal appearance of both eyes Neck General: normal visual inspection Lymph Lymphatic: no lymphadenopathy noted and no lymphedema noted Resp normal respiratory effort Cardio regular rate and regular rhythm Extremity normal capillary refill, no joint enlargement, no calf tenderness and no pedal edema Peripheral Pulses: Yes posterior tibial pulses present and dorsalis pedis pulses present Skin no rashes or lesions noted, skin turgor normal and no jaundice Skin Narrative: Skin is thin/atrophic Wound Narrative: Right plantar heel decubitus ulceration demonstrates thick yellow fibrotic tissue in the wound bed with rolled wound edges. No localized erythema, no malodor, no purulent drainage, or other localized signs of infection. Ulcerative site demonstrates no palpable fluctuance or crepitus within the tissue. No pain to palpation of the ulcerative wound bed. There is pain to palpation surrounding the ulcerative rim. Surrounding skin is intact/atrophic and healthy appearing. Neuro oriented x3 Debridement Note Debridement Note Wound debrided: Right heel decubitus ulcer Laterality: Right Wound Grade/Stage: Rasmussen stage III Type of Debridement: Excisional debridement Anesthesia Used: 5% Lidocaine Gel Depth: Down to and including healthy tissue and in the subcutaneous layer Percentage of wound debrided: 100 Instrument Used: 3mm curette Tissue Removed: Fibrous, devitalized subcutaneous, biofilm, slough Severity: Fat Layer Exposed Amount of bleeding with debridement: Mild Bleeding Controlled with: Compression and gauze Patient tolerated procedure: Patient tolerated procedure well Post-Debridement Measurements and Additional Note: Post-Debridement Measurements/Treatment RADHA - Nurse 1 - General Ulcer Assessment Start: 01/04/22 10:46 Freq: Status: Active Protocol: AYSE Activity Type Activity Date Activity User E-Sign Co-Sign Detail Recorded Client Recorded Date Recorded By Document 01/04/22 10:46 KEYONA [id number] 01/04/22 10:51 KEYONA 01/04/22 10:46 - Today's Visit Information Type of service 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 ) Arrival Mode Wheelchair Transfer Assistance Manual Accompanied by son Patient Identification Verified (Name & Yes ) Patient Requires Transmission-Based No Precautions Vital Signs Temperature (97.8 F-99.1 F) 96.7 F L Temperature Source Temporal Pulse Rate (60-100) 84 Pulse Location Monitor Respiratory Rate (12-18) 18 Respiratory rate source Observation Blood Pressure (90/60-120/80) 128/95 H Blood Pressure Mean (mm Hg) 106 Source Monitor Position Semi-Fowlers Blood Pressure Location Right Arm History Since Last Visit- (Skip if this is Patient's initial visit) Have you changed medications since your No last visit? Any new allergies or adverse reactions No Had a fall/change in ADL's that may No increase risk of falls Signs or symptoms of abuse and/or No neglect since last visit Have you been in the hospital since your No last visit? Has dressing in place as prescribed Yes Has compression in place as prescribed N/A Has offloadiing in place as prescribed Yes Experienced any changes in pain level or No management Left Footwear Slipper Right Footwear Slipper Pain Scale: 0-10 Numeric Is Patient Pain Free? Yes - Nurse 1 - General Ulcer Measurement Start: 01/04/22 10:46 Freq: Status: Active Protocol: Activity Type Activity Date Activity User E-Sign Co-Sign Detail Recorded Client Recorded Date Recorded By Document 01/04/22 10:46 [id number] 01/04/22 10:51 KEYONA 01/04/22 10:46 Wound Center Nurse 1 #1 Right Heel Cluster -Combined with other wound No -Current Size (cm) - Length 1.3 -Current Size (cm) - Width 1.5 -Current Size (cm) - Depth 0.2 -Total Square Cm 1.95 -Photo Taken Yes -Epithelialization None Present -Tunneling No -Undermining/Tunneling No -Circular Undermining No -Exudate Amt Medium -Exudate Type Sanguineous -Wound Margin Flat & Intact -Granulation Amt None Present (0 %) -Slough/Fibrin Yes -Necrosis Amt Large (67-100%) -Necrotic Tissue Type Adherent Slough -Structure Exposed N/A -Texture (Kendy-wound Skin Appearance) Assessed -Moisture (Kendy-wound Skin Appearance) Assessed, Maceration -Color (Kendy-wound Skin Appearance) Assessed -Temperature (Kendy-wound Skin No Abnormality Appearance) (Pt Warm) -Tenderness on Palpation (Kendy-wound No Skin Appearance) -Ulcer Cleansing Rinsed/ Irrigated with Saline -Foul Odor after Cleansing No -Anesthetic Used 4% Lidocaine Solution Lower Limb Edema Present NA - Nurse 2 - General Ulcer CM Notes Start: 01/04/22 10:46 Freq: Status: Active Protocol: Activity Type Activity Date Activity User E-Sign Co-Sign Detail Recorded Client Recorded Date Recorded By Document 01/04/22 14:50 KENTRELL [id number] 01/04/22 14:51 PL 01/04/22 14:50 Wound Center Nurse 2 #1 Right Heel Cluster -Time 11:27 -Correct Patient Yes -Correct Side, Site, Position Yes -Correct Procedure Yes -Procedure Performed Yes -Type of Procedure Debridement -Clinical Debridement Subcutaneous -Tissue Removed Subcutaneous -Post Debridement (cm) - Length 1.3 -Post Debridement (cm) - Width 1.5 -Post Debridement (cm) - Depth 0.2 -Total Square (Post) (cm) 1.95 -Area of Debridement (cm) - Length 1.3 -Area of Debridement (cm) - Width 0.5 -Total Square (Area) (cm) 0.65 -Tunneling No -Undermining/Tunneling No -Circular Undermining No -Wound/Ulcer Outcome Not Healed -Ulcer Cleansing Rinsed/ Irrigated with Saline -Foul Odor after Cleansing No -Bioengineered Tissue No -Bleeding Controlled with Pressure -Treatment Response Procedure Tolerated Well -Debridement - Subq, 1st 20sq cm Yes Pain Scale: 0-10 Numeric Is Patient Pain Free? Yes - Nurse 3 - General Ulcer D/C NN Start: 01/04/22 10:46 Freq: Status: Active Protocol: Activity Type Activity Date Activity User E-Sign Co-Sign Detail Recorded Client Recorded Date Recorded By Document 01/04/22 11:49 JONO [id number] 01/04/22 11:49 JONO 01/04/22 11:49 Wound Care Nurse 3 #1 Right Heel Cluster -Ulcer Cleansing Rinsed/ Irrigated with Saline -Primary Dressing Applied Promogran Shakira Matter -Other Dressing ABD pad -Primary Dressing Covered/Secured with Dry Gauze,Dry Gauze & Roll Gauze,Secured with Tape -Promogran Shakira Matter 1 Pain Scale: 0-10 Numeric Is Patient Pain Free? Yes WC - Visit Discharge Discharge Condition Stable Ambulatory Status Wheelchair Transportation Private Auto Accompanied by son Assessment/Plan Assessment/Plan (1) Decubitus ulcer of right heel, stage 3: CODE(S): L89.613 - Pressure ulcer of right heel, stage 3 (2) Diabetes mellitus with diabetic polyneuropathy: CODE(S): E11.42 - Type 2 diabetes mellitus with diabetic polyneuropathy PLAN: This is an 86-year-old female seen in the wound care center for a decubitus ulcer of the right heel, unstageable secondary to eschar, likely stage III complicated by 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 Ulceration site demonstrates no localized signs of infection or palpable fluctuance. They are continuing to apply the Santyl to the ulcerative site and there is thick yellow fibrotic tissue in the wound bed today. Ulcerative site sharply debrided with 3 mm curette to patient tolerance in the clinical panel above. They are to discontinue use of Santyl. Shakira applied to the wound bed today with dry sterile dressing. They are to change dressing daily. I discussed the importance of continued offloading of the right heel with soft foam offloading boots while she is in her hospital bed sleeping. Patient and son voiced understanding of this. I will continue to follow and monitor her for any signs and changes as she continues to use her Santyl daily. I discussed with the patient and her son signs of a progressing infection. They are to observe for any redness that moves up the leg, purulent drainage from the wound site, malodor from the wound site, or if she experiences any nausea, vomiting, fever, chills that these are signs of a progressing infection and she is to report to the ED. Patient and [id number] voiced understanding of this. I reviewed and discussed her case today. Debridement was performed today as noted in the clinical panel to all of the ulcer sites. The following work up and care recommendations were made: Dressing: Shakira and dry sterile dressings, change daily Wash: Soap and water Tissue growth optimization: Shakira Offload: Elevation of the lower extremities and foam offloading boot to both heels Vascular: Palpable pedal pulses Edema: No soft tissue edema, patient instructed to elevate extremities when at rest Infection: No localized signs of infection Pain: Patient may take [id number] Tylenol extra strength for any pain or discomfort Host factors: Diabetes mellitus type 2 with peripheral polyneuropathy, recent hip replacement, pressure to the heel I answered all the patient's questions. To return to the wound healing center in 1 week or call sooner if the patient has any questions or concerns. Note: [employer] speech recognition assistant bookkeeper software was used to create portions of this document. Sound-alike and misspelled words, as well as other assistant bookkeeper errors may be contained in the documentation.
[2022-01-18 10:50] VITALS: BP 98/68; PULSE 84; TEMP 36.1
--- NOTE | 2022-01-18 11:24 | PCM.WC.PN ---
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 Following replacement of her hip she underwent therapy at [facility] where the therapist noticed some cracking on her right heel. Patient's son looked at the right heel and noticed a dry darkened eschar at the posterior aspect of the of the heel. Her son states that his mom does not wear any shoes or things that rub the back of her heel. He states that she sits in a recliner with her feet dangling off the edge with no pressure to the heel. He states when she sleeps it is in a hospital bed and she will occasionally dangle the right foot off of the bed. They were instructed by the therapist to be seen in the wound care center for close following. She admits to being a diabetic and demonstrates no localized signs of infection about the left heel and denies any constitutional symptoms. Subjective Subjective This is an 87-year-old female who presents to the wound care center for a follow-up of a right plantar heel ulceration.? She is accompanied by her son today.? He is continuing to change her dressings daily with prismal.? They have been continuing with the offloading with foam waffle boots as she sleeps in bed.? She denies any constitutional symptoms today.? She states she has no other complaints today. Objective Data Objective Data Vital Signs: Vital Signs Temp Pulse Resp BP 96.9 F L 84 18 98/68 01/18/22 10:50 01/18/22 10:50 01/04/22 10:46 01/18/22 10:50 Physical Exam Const alert, oriented x3 and no apparent distress General Appearance: cooperative and comfortable HEENT normocephalic Eyes General Eye: normal appearance of both eyes Neck General: normal visual inspection Lymph Lymphatic: no lymphadenopathy noted and no lymphedema noted Resp normal respiratory effort Cardio regular rate and regular rhythm Extremity normal capillary refill, no joint enlargement, no calf tenderness and no pedal edema Skin no rashes or lesions noted, skin turgor normal and no jaundice Skin Narrative: Skin is thin/atrophic Wound Narrative: Right plantar heel decubitus ulceration demonstrates thick yellow fibrotic tissue in the wound bed with rolled wound edges. No localized erythema, no malodor, no purulent drainage, or other localized signs of infection. Ulcerative site demonstrates no palpable fluctuance or crepitus within the tissue. No pain to palpation of the ulcerative wound bed. There is pain to palpation surrounding the ulcerative rim. Surrounding skin is intact/atrophic and healthy appearing. Neuro oriented x3 Debridement Note Debridement Note Wound debrided: Right heel decubitus ulceration Laterality: Right Wound Grade/Stage: Rasmussen stage III Type of Debridement: Excisional debridement Anesthesia Used: 5% Lidocaine Gel Depth: Down to and including healthy tissue and in the subcutaneous layer Percentage of wound debrided: 100 Instrument Used: 3mm curette Tissue Removed: Fibrous, devitalized subcutaneous, biofilm, slough Severity: Fat Layer Exposed Amount of bleeding with debridement: Mild Bleeding Controlled with: Compression and gauze Patient tolerated procedure: Patient tolerated procedure well Post-Debridement Measurements and Additional Note: Post-Debridement Measurements/Treatment - Nurse 1 - General Ulcer Assessment Start: 01/04/22 10:46 Freq: Status: Active Protocol: AYSE Activity Type Activity Date Activity User E-sign Co-sign Detail Recorded Client Recorded Date Recorded By Document 01/04/22 10:46 [id number] 01/04/22 10:51 Document 01/18/22 10:50 JONO [id number] 01/18/22 10:52 JONO 01/04/22 01/18/22 10:46 10:50 - Today's Visit Information Type of service Follow-up Visit Follow-up Visit (Physician/EXPERIMENTAL PSYCHOLOGIST (Physician/EXPERIMENTAL PSYCHOLOGIST ) ) Arrival Mode Wheelchair Wheelchair Transfer Assistance Manual Accompanied by son Patient Identification Verified (Name & Yes Yes ) Patient Requires Transmission-Based No Precautions Vital Signs Temperature (97.8 F-99.1 F) 96.7 F L 96.9 F L Temperature Source Temporal Temporal Pulse Rate (60-100) 84 84 Pulse Location Monitor Monitor Respiratory Rate (12-18) 18 Respiratory rate source Observation Blood Pressure (90/60-120/80) 128/95 H 98/68 Blood Pressure Mean (mm Hg) 106 78 Source Monitor Monitor Position Semi-Fowlers Semi-Fowlers Blood Pressure Location Right Arm Left Arm History Since Last Visit- (Skip if this is Patient's initial visit) Have you changed medications since your No No last visit? Any new allergies or adverse reactions No No Had a fall/change in ADL's that may No No increase risk of falls Signs or symptoms of abuse and/or No No neglect since last visit Have you been in the hospital since your No No last visit? Has dressing in place as prescribed Yes Yes Has compression in place as prescribed N/A N/A Has offloadiing in place as prescribed Yes N/A Experienced any changes in pain level or No No management Left Footwear Slipper Slipper Right Footwear Slipper Slipper Pain Scale: 0-10 Numeric Is Patient Pain Free? Yes Yes - Nurse 1 - General Ulcer Measurement Start: 01/04/22 10:46 Freq: Status: Active Protocol: Activity Type Activity Date Activity User E-sign Co-sign Detail Recorded Client Recorded Date Recorded By Document 01/04/22 10:46 KEYONA [id number] 01/04/22 10:51 KEYONA Document 01/18/22 10:50 KR [id number] 01/18/22 10:52 KR 01/04/22 01/18/22 10:46 10:50 Wound Center Nurse 1 #1 Right Heel Cluster -Combined with other wound No -Current Size (cm) - Length 1.3 1 -Current Size (cm) - Width 1.5 1.4 -Current Size (cm) - Depth 0.2 0.1 -Total Square Cm 1.95 1.4 -Photo Taken Yes -Epithelialization None Present -Tunneling No -Undermining/Tunneling No -Circular Undermining No -Exudate Amt Medium Small -Exudate Type Sanguineous Serosanguineous -Wound Margin Flat & Intact Distinct, Outline Attached -Granulation Amt None Present (0 Small (1-33%) %) -Granulation Quality Pale -Slough/Fibrin Yes -Necrosis Amt Large (67-100%) None Present (0 %) -Necrotic Tissue Type Adherent Slough -Structure Exposed N/A -Texture (Kendy-wound Skin Appearance) Assessed Assessed, Scarring -Moisture (Kendy-wound Skin Appearance) Assessed, No Abnormality, Maceration Assessed -Color (Kendy-wound Skin Appearance) Assessed No Abnormality, Assessed -Temperature (Kendy-wound Skin No Abnormality No Abnormality Appearance) (Pt Warm) (Pt Warm) -Tenderness on Palpation (Kendy-wound No No Skin Appearance) -Ulcer Cleansing Rinsed/ Rinsed/ Irrigated with Irrigated with Saline Saline -Foul Odor after Cleansing No No -Anesthetic Used 4% Lidocaine 4% Lidocaine Solution Solution Lower Limb Edema Present NA WC - Nurse 2 - General Ulcer CM Notes Start: 01/04/22 10:46 Freq: Status: Active Protocol: Activity Type Activity Date Activity User E-sign Co-sign Detail Recorded Client Recorded Date Recorded By Document 01/04/22 14:50 PL [id number] 01/04/22 14:51 PL 01/04/22 14:50 Wound Center Nurse 2 -Time 11:27 -Correct Patient Yes -Correct Side, Site, Position Yes -Correct Procedure Yes -Procedure Performed Yes -Type of Procedure Debridement -Clinical Debridement Subcutaneous -Tissue Removed Subcutaneous -Post Debridement (cm) - Length 1.3 -Post Debridement (cm) - Width 1.5 -Post Debridement (cm) - Depth 0.2 -Total Square (Post) (cm) 1.95 -Area of Debridement (cm) - Length 1.3 -Area of Debridement (cm) - Width 0.5 -Total Square (Area) (cm) 0.65 -Tunneling No -Undermining/Tunneling No -Circular Undermining No -Wound/Ulcer Outcome Not Healed -Ulcer Cleansing Rinsed/ Irrigated with Saline -Foul Odor after Cleansing No -Bioengineered Tissue No -Bleeding Controlled with Pressure -Treatment Response Procedure Tolerated Well -Debridement - Subq, 1st 20sq cm Yes Pain Scale: 0-10 Numeric Is Patient Pain Free? Yes RADHA - Nurse 3 - General Ulcer D/C NN Start: 01/04/22 10:46 Freq: Status: Active Protocol: Activity Type Activity Date Activity User E-sign Co-sign Detail Recorded Client Recorded Date Recorded By Document 01/04/22 11:49 KR [id number] 01/04/22 11:49 KR Document 01/18/22 11:18 ML [id number] 01/18/22 11:19 ML 01/04/22 01/18/22 11:49 11:18 Wound Care Nurse 3 #1 Right Heel Cluster -Ulcer Cleansing Rinsed/ Rinsed/ Irrigated with Irrigated with Saline Saline -Primary Dressing Applied Promogran Promogran Shakira Matter Shakira Matter -Other Dressing ABD pad -Primary Dressing Covered/Secured with Dry Gauze,Dry Dry Gauze & Gauze & Roll Roll Gauze, Gauze,Secured Secured with with Tape Tape -Promogran Shakira Matter 1 2 Pain Scale: 0-10 Numeric Is Patient Pain Free? Yes Yes WC - Visit Discharge Discharge Condition Stable Stable Ambulatory Status Wheelchair Ambulatory Transportation Private Auto Accompanied by son Medication Reconcilliation completed & No provided to patient/care provider Clinical Summary of Care Provided Yes Assessment/Plan Assessment/Plan (1) Decubitus ulcer of right heel, stage 3: CODE(S): L89.613 - Pressure ulcer of right heel, stage 3 (2) Diabetes mellitus with diabetic polyneuropathy: CODE(S): E11.42 - Type 2 diabetes mellitus with diabetic polyneuropathy PLAN: Plan This is an 86-year-old female seen in the wound care center for a decubitus ulcer of the right heel, unstageable secondary to eschar, likely stage III complicated by 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 Ulceration site demonstrates no localized signs of infection or palpable fluctuance. They are continuing to apply Shakira to the ulcerative site and there is thick yellow fibrotic tissue in the wound bed today. Ulcerative site sharply debrided with 3 mm curette to patient tolerance in the clinical panel above. They are to discontinue use of Santyl. Shakira applied to the wound bed today with dry sterile dressing. They are to change dressing daily. Due to her son pushing out visits and the thickness of fibrotic tissue at each visit I will consider Misonix debridement at next visit. I discussed the importance of continued offloading of the right heel with soft foam offloading boots while she is in her hospital bed sleeping. Patient and son voiced understanding of this. I will continue to follow and monitor her for any signs and changes as she continues to dress with Shakira daily. I discussed with the patient and her son signs of a progressing infection. They are to observe for any redness that moves up the leg, purulent drainage from the wound site, malodor from the wound site, or if she experiences any nausea, vomiting, fever, chills that these are signs of a progressing infection and she is to report to the ED. Patient and [id number] voiced understanding of this. I reviewed and discussed her case today. Debridement was performed today as noted in the clinical panel to all of the ulcer sites. 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 To return to the wound healing center in 3 weeks or call sooner if the patient has any questions or concerns. Note: [employer] speech recognition manager materials management software was used to create portions of this document. Sound-alike and misspelled words, as well as other manager materials management errors may be contained in the documentation.
== END 2022-02-01 23:59 | disposition home or self-care (01) ==
LOC: WC 10:45
PROVIDERS: PCP Preventive Medicine Occupational Medicine; Visit Provider Student in an Organized Health Care Education/Training Program
DX: L89.613 Pressure ulcer of right heel, stage 3 (principal); E11.42 Type 2 diabetes mellitus with diabetic polyneuropathy; Z96.649 Presence of unspecified artificial hip joint
CPT/HCPCS: 11042

== ENCOUNTER 2022-03-01 10:45 | Outpatient (RCR) | payer MEDICARE, OTHER, SELFPAY ==
[2022-02-02 00:35] VITALS: BP 98/68; PULSE 84; RESP 18; TEMP 36.1
[2022-02-08 10:44] VITALS: BP 124/66; PULSE 82; TEMP 36.1
--- NOTE | 2022-02-08 13:05 | PN.PCM_ITS ---
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 Following replacement of her hip she underwent therapy at [facility] where the therapist noticed some cracking on her right heel. Patient's son looked at the right heel and noticed a dry darkened eschar at the posterior aspect of the of the heel. Her son states that his mom does not wear any shoes or things that rub the back of her heel. He states that she sits in a recliner with her feet dangling off the edge with no pressure to the heel. He states when she sleeps it is in a hospital bed and she will occasionally dangle the right foot off of the bed. They were instructed by the therapist to be seen in the wound care center for close following. She admits to being a diabetic and demonstrates no localized signs of infection about the left heel and denies any constitutional symptoms. Subjective Subjective This is an 87-year-old female who presents to the wound care center for follow- up of a right plantar heel ulceration. She is accompanied today by her son. He states they are continuing to change dressings daily with Shakira. They have also been offloading with foam waffle boots in her bed at night. She denies any constitutional symptoms today. She has no other complaints today. Objective Data Objective Data Vital Signs: Vital Signs Temp Pulse Resp BP 96.9 F L 82 18 124/66 H 02/08/22 10:44 02/08/22 10:44 02/02/22 00:35 02/08/22 10:44 Physical Exam Const alert, oriented x3 and no apparent distress General Appearance: cooperative and comfortable HEENT normocephalic Eyes General Eye: normal appearance of both eyes Neck General: normal visual inspection Lymph Lymphatic: no lymphadenopathy noted and no lymphedema noted Resp normal respiratory effort Cardio regular rate and regular rhythm Extremity normal capillary refill, no joint enlargement, no calf tenderness and no pedal edema Peripheral Pulses: Yes posterior tibial pulses present and dorsalis pedis pulses present Skin no rashes or lesions noted, skin turgor normal and no jaundice Skin Narrative: Skin is thin/atrophic Wound Narrative: Right plantar heel decubitus ulceration demonstrates yellow fibrotic tissue in the wound bed with rolled wound edges. No localized erythema, no malodor, no purulent drainage, or other localized signs of infection. Ulcerative site demonstrates no palpable fluctuance or crepitus within the tissue. No pain to palpation of the ulcerative wound bed. There is pain to palpation surrounding the ulcerative rim. Surrounding skin is intact/atrophic and healthy appearing. Neuro oriented x3 and moves all extremities Debridement Note Debridement Note Wound debrided: Right plantar heel decubitus ulceration Laterality: Right Wound Grade/Stage: Rasmussen stage III Type of Debridement: Excisional debridement Anesthesia Used: 5% Lidocaine Gel Depth: Down to and including healthy tissue and in the subcutaneous layer Percentage of wound debrided: 100 Instrument Used: - (Misonix) Tissue Removed: Fibrous, devitalized subcutaneous, biofilm, slough Severity: Fat Layer Exposed Amount of bleeding with debridement: Mild Bleeding Controlled with: Compression and gauze Patient tolerated procedure: Patient tolerated procedure well Post-Debridement Measurements and Additional Note: Post-Debridement Measurements/Treatment RADHA - Nurse 1 - General Ulcer Assessment Start: 02/08/22 10:44 Freq: Status: Active Protocol: AYSE Activity Type Activity Date Activity User E-sign Co-sign Detail Recorded Client Recorded Date Recorded By Document 02/08/22 10:44 JONO [id number] 02/08/22 10:45 JONO 02/08/22 10:44 - Today's Visit Information Type of service Follow-up Visit (Physician/ELECTRIC BLANKET PACKER ) Arrival Mode Wheelchair Patient Identification Verified (Name & Yes ) Vital Signs Temperature (97.8 F-99.1 F) 96.9 F L Temperature Source Temporal Pulse Rate (60-100) 82 Pulse Location Monitor Blood Pressure (90/60-120/80) 124/66 H Blood Pressure Mean (mm Hg) 85 Source Monitor Position Semi-Fowlers Blood Pressure Location Left Arm History Since Last Visit- (Skip if this is Patient's initial visit) Have you changed medications since your No last visit? Any new allergies or adverse reactions No Had a fall/change in ADL's that may No increase risk of falls Signs or symptoms of abuse and/or No neglect since last visit Have you been in the hospital since your No last visit? Has dressing in place as prescribed Yes Has compression in place as prescribed N/A Has offloadiing in place as prescribed N/A Experienced any changes in pain level or No management Left Footwear Slipper Right Footwear Slipper Pain Scale: 0-10 Numeric Is Patient Pain Free? Yes - Nurse 1 - General Ulcer Measurement Start: 02/08/22 10:44 Freq: Status: Active Protocol: Activity Type Activity Date Activity User E-sign Co-sign Detail Recorded Client Recorded Date Recorded By Document 02/08/22 10:44 JONO [id number] 02/08/22 10:45 JONO 02/08/22 10:44 Wound Center Nurse 1 #1 Right Heel Cluster -Current Size (cm) - Length 1.2 -Current Size (cm) - Width 1.6 -Current Size (cm) - Depth 0.2 -Total Square Cm 1.92 -Exudate Amt Small -Exudate Type Serosanguineous -Wound Margin Distinct, Outline Attached -Granulation Amt None Present (0 %) -Necrosis Amt Medium (34-66%) -Necrotic Tissue Type Adherent Slough -Texture (Kendy-wound Skin Appearance) Assessed, Scarring -Moisture (Kendy-wound Skin Appearance) No Abnormality, Assessed -Color (Kendy-wound Skin Appearance) No Abnormality, Assessed -Temperature (Kendy-wound Skin No Abnormality Appearance) (Pt Warm) -Tenderness on Palpation (Kendy-wound No Skin Appearance) -Ulcer Cleansing Rinsed/ Irrigated with Saline -Foul Odor after Cleansing No -Anesthetic Used 5% Lidocaine Gel - Nurse 2 - General Ulcer CM Notes Start: 02/08/22 10:44 Freq: Status: Active Protocol: Activity Type Activity Date Activity User E-sign Co-sign Detail Recorded Client Recorded Date Recorded By Document 02/08/22 12:23 KENTRELL [id number] 02/08/22 12:24 KENTRELL 02/08/22 12:23 Wound Center Nurse 2 -Time 11:24 -Correct Patient Yes -Correct Side, Site, Position Yes -Correct Procedure Yes -Procedure Performed Yes -Type of Procedure Debridement -Clinical Debridement Subcutaneous -Tissue Removed Subcutaneous -Post Debridement (cm) - Length 1.2 -Post Debridement (cm) - Width 1.6 -Post Debridement (cm) - Depth 0.2 -Total Square (Post) (cm) 1.92 -Area of Debridement (cm) - Length 1.2 -Area of Debridement (cm) - Width 1.6 -Total Square (Area) (cm) 1.92 -Tunneling No -Undermining/Tunneling No -Circular Undermining No -Wound/Ulcer Outcome Not Healed -Ulcer Cleansing Rinsed/ Irrigated with Saline -Foul Odor after Cleansing No -Bioengineered Tissue No -Bleeding Controlled with Pressure -Treatment Response Procedure Tolerated Well -Debridement - Subq, 1st 20sq cm Yes Pain Scale: 0-10 Numeric Is Patient Pain Free? Yes - Nurse 3 - General Ulcer D/C NN Start: 02/08/22 10:44 Freq: Status: Active Protocol: Activity Type Activity Date Activity User E-sign Co-sign Detail Recorded Client Recorded Date Recorded By Document 02/08/22 11:46 JONO [id number] 02/08/22 11:46 JONO 02/08/22 11:46 Wound Care Nurse 3 #1 Right Heel Cluster -Ulcer Cleansing Rinsed/ Irrigated with Saline -Primary Dressing Applied Promogran Shakira Matter -Other Dressing ABD pad -Primary Dressing Covered/Secured with Dry Gauze,Dry Gauze & Roll Gauze,Secured with Tape -Promogran Shakira Matter 1 Pain Scale: 0-10 Numeric Is Patient Pain Free? Yes WC - Visit Discharge Discharge Condition Stable Ambulatory Status Wheelchair Transportation Private Auto Accompanied by son Assessment/Plan Assessment/Plan (1) Decubitus ulcer of right heel, stage 3: CODE(S): L89.613 - Pressure ulcer of right heel, stage 3 (2) Diabetes mellitus with diabetic polyneuropathy: CODE(S): E11.42 - Type 2 diabetes mellitus with diabetic polyneuropathy PLAN: Plan This is an 86-year-old female seen in the wound care center for a decubitus ulcer of the right heel, stage III complicated by 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 Ulceration site demonstrates no localized signs of infection or palpable fluctuance.?They are continuing to apply Shakira to the ulcerative site and there is yellow fibrotic tissue in the wound bed today. Wound measures 1.3 cm x 1.5 cm x 0.2 cm. Ulcerative site sharply debrided with Misonix to patient tolerance in the clinical panel above. Shakira applied to the wound bed today with dry sterile dressing.? They are to change dressing daily. I will seek approval of an epi fix graft to apply at next visit. Due to her son pushing out visits and the thickness of fibrotic tissue at each visit I will continue Misonix debridement at next visit. I discussed the importance of continued offloading of the right heel with soft foam offloading boots while she is in her hospital bed sleeping. Patient and son voiced understanding of this. I will continue to follow and monitor her for any signs and changes as she continues to dress with Shakira daily. I discussed with the patient and her son signs of a progressing infection.? They are to observe for any redness that moves up the leg, purulent drainage from the wound site, malodor from the wound site, or if she experiences any nausea, vomiting, fever, chills that these are signs of a progressing infection and she is to report to the ED.? Patient and [id number] voiced understanding of this. 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 I answered all the patient's questions.? To return to the wound healing center in 2 weeks or call sooner if the patient has any questions or concerns. ? Note: [employer] speech recognition oil field pumper software was used to create portions of this document. Sound-alike and misspelled words, as well as other oil field pumper errors may be contained in the documentation.
[2022-03-01 10:39] VITALS: BP 100/57; PULSE 74; TEMP 36.3
--- NOTE | 2022-03-01 13:56 | PN.PCM_ITS ---
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 Following replacement of her hip she underwent therapy at [facility] where the therapist noticed some cracking on her right heel. Patient's son looked at the right heel and noticed a dry darkened eschar at the posterior aspect of the of the heel. Her son states that his mom does not wear any shoes or things that rub the back of her heel. He states that she sits in a recliner with her feet dangling off the edge with no pressure to the heel. He states when she sleeps it is in a hospital bed and she will occasionally dangle the right foot off of the bed. They were instructed by the therapist to be seen in the wound care center for close following. She admits to being a diabetic and demonstrates no localized signs of infection about the left heel and denies any constitutional symptoms. Subjective Subjective This is an 87-year-old female who presents to the wound care center for follow- up of a right plantar heel ulceration.? She is accompanied today by her son.? He states they are continuing to change dressings daily with Shakira.? They have also been offloading with foam waffle boots in her bed at night.? She denies any constitutional symptoms today.? She has no other complaints today. Objective Data Objective Data Vital Signs: Vital Signs Temp Pulse Resp BP 97.4 F L 74 18 100/57 L 03/01/22 10:39 03/01/22 10:39 02/02/22 00:35 03/01/22 10:39 Physical Exam Const alert, oriented x3 and no apparent distress General Appearance: cooperative and comfortable HEENT normocephalic Eyes General Eye: normal appearance of both eyes Neck General: normal visual inspection Lymph Lymphatic: no lymphadenopathy noted and no lymphedema noted Resp normal respiratory effort Cardio regular rate and regular rhythm Extremity normal capillary refill, no joint enlargement, no calf tenderness and no pedal edema Skin no rashes or lesions noted, skin turgor normal and no jaundice Skin Narrative: Skin is thin/atrophic Wound Narrative: Right plantar heel decubitus ulceration demonstrates yellow fibrotic tissue in the wound bed with rolled wound edges. No localized erythema, no malodor, no purulent drainage, or other localized signs of infection. Ulcerative site demonstrates no palpable fluctuance or crepitus within the tissue. No pain to palpation of the ulcerative wound bed. There is pain to palpation surrounding the ulcerative rim. Surrounding skin is intact/atrophic and healthy appearing. Neuro oriented x3 and moves all extremities Debridement Note Debridement Note Wound debrided: Right posterior heel decubitus ulceration Laterality: Right Wound Grade/Stage: Rasmussen stage II Type of Debridement: Excisional debridement Anesthesia Used: 5% Lidocaine Gel Depth: Down to and including healthy tissue and in the subcutaneous layer Percentage of wound debrided: 100 Instrument Used: 3mm curette and - (Misonix) Tissue Removed: Fibrous, devitalized subcutaneous, biofilm, slough Severity: Fat Layer Exposed Amount of bleeding with debridement: Mild Bleeding Controlled with: Compression and gauze Patient tolerated procedure: Patient tolerated procedure well Post-Debridement Measurements and Additional Note: Post-Debridement Measurements/Treatment - Nurse 1 - General Ulcer Assessment Start: 02/08/22 10:44 Freq: Status: Active Protocol: AYSE Activity Type Activity Date Activity User E-sign Co-sign Detail Recorded Client Recorded Date Recorded By Document 02/08/22 10:44 [id number] 02/08/22 10:45 Document 03/01/22 10:39 [id number] 03/01/22 10:46 KR 02/08/22 03/01/22 10:44 10:39 - Today's Visit Information Type of service Follow-up Visit Follow-up Visit (Physician/DIRECTOR OUTPATIENT SERVICES (Physician/DIRECTOR OUTPATIENT SERVICES ) ) Arrival Mode Wheelchair Wheelchair Patient Identification Verified (Name & Yes Yes ) Vital Signs Temperature (97.8 F-99.1 F) 96.9 F L 97.4 F L Temperature Source Temporal Temporal Pulse Rate (60-100) 82 74 Pulse Location Monitor Monitor Blood Pressure (90/60-120/80) 124/66 H 100/57 L Blood Pressure Mean (mm Hg) 85 71 Source Monitor Monitor Position Semi-Fowlers Sitting Blood Pressure Location Left Arm Right Arm History Since Last Visit- (Skip if this is Patient's initial visit) Have you changed medications since your No No last visit? Any new allergies or adverse reactions No No Had a fall/change in ADL's that may No No increase risk of falls Signs or symptoms of abuse and/or No No neglect since last visit Have you been in the hospital since your No No last visit? Has dressing in place as prescribed Yes Yes Has compression in place as prescribed N/A N/A Has offloadiing in place as prescribed N/A N/A Experienced any changes in pain level or No No management Left Footwear Slipper Regular Shoe Right Footwear Slipper Regular Shoe Pain Scale: 0-10 Numeric Is Patient Pain Free? Yes Yes RADHA - Nurse 1 - General Ulcer Measurement Start: 02/08/22 10:44 Freq: Status: Active Protocol: Activity Type Activity Date Activity User E-sign Co-sign Detail Recorded Client Recorded Date Recorded By Document 02/08/22 10:44 JONO [id number] 02/08/22 10:45 KR Document 03/01/22 10:39 JONO [id number] 03/01/22 10:46 KR 02/08/22 03/01/22 10:44 10:39 Wound Center Nurse 1 #1 Right Heel Cluster -Current Size (cm) - Length 1.2 0.5 -Current Size (cm) - Width 1.6 1.4 -Current Size (cm) - Depth 0.2 0.1 -Total Square Cm 1.92 0.70 -Exudate Amt Small Small -Exudate Type Serosanguineous Serosanguineous -Wound Margin Distinct, Distinct, Outline Outline Attached Attached -Granulation Amt None Present (0 None Present (0 %) %) -Necrosis Amt Medium (34-66%) Large (67-100%) -Necrotic Tissue Type Adherent Slough Adherent Slough -Texture (Kendy-wound Skin Appearance) Assessed, Assessed, Scarring Scarring -Moisture (Kendy-wound Skin Appearance) No Abnormality, Assessed Assessed -Color (Kendy-wound Skin Appearance) No Abnormality, No Abnormality, Assessed Assessed -Temperature (Kendy-wound Skin No Abnormality No Abnormality Appearance) (Pt Warm) (Pt Warm) -Tenderness on Palpation (Kendy-wound No No Skin Appearance) -Ulcer Cleansing Rinsed/ Rinsed/ Irrigated with Irrigated with Saline Saline -Foul Odor after Cleansing No No -Anesthetic Used 5% Lidocaine 5% Lidocaine Gel Gel RADHA - Nurse 2 - General Ulcer CM Notes Start: 02/08/22 10:44 Freq: Status: Active Protocol: Activity Type Activity Date Activity User E-sign Co-sign Detail Recorded Client Recorded Date Recorded By Document 02/08/22 12:23 PL [id number] 02/08/22 12:24 PL Document 03/01/22 13:10 PL [id number] 03/01/22 13:11 PL 02/08/22 03/01/22 12:23 13:10 Wound Center Nurse 2 #1 Right Heel Cluster -Time 11:24 11:38 -Correct Patient Yes Yes -Correct Side, Site, Position Yes Yes -Correct Procedure Yes Yes -Procedure Performed Yes Yes -Type of Procedure Debridement Debridement -Clinical Debridement Subcutaneous Subcutaneous -Tissue Removed Subcutaneous Subcutaneous -Post Debridement (cm) - Length 1.2 0.5 -Post Debridement (cm) - Width 1.6 1.4 -Post Debridement (cm) - Depth 0.2 0.1 -Total Square (Post) (cm) 1.92 0.70 -Area of Debridement (cm) - Length 1.2 0.5 -Area of Debridement (cm) - Width 1.6 1.4 -Total Square (Area) (cm) 1.92 0.70 -Tunneling No No -Undermining/Tunneling No No -Circular Undermining No No -Wound/Ulcer Outcome Not Healed Not Healed -Ulcer Cleansing Rinsed/ Rinsed/ Irrigated with Irrigated with Saline Saline -Foul Odor after Cleansing No No -Bioengineered Tissue No No -Bleeding Controlled with Pressure Pressure -Treatment Response Procedure Procedure Tolerated Well Tolerated Well -Debridement - Subq, 1st 20sq cm Yes Yes Pain Scale: 0-10 Numeric Is Patient Pain Free? Yes Yes - Nurse 3 - General Ulcer D/C NN Start: 02/08/22 10:44 Freq: Status: Active Protocol: Activity Type Activity Date Activity User E-sign Co-sign Detail Recorded Client Recorded Date Recorded By Document 02/08/22 11:46 KR [id number] 02/08/22 11:46 KR Document 03/01/22 11:52 DL [id number] 03/01/22 11:53 DL 02/08/22 03/01/22 11:46 11:52 Wound Care Nurse 3 #1 Right Heel Cluster -Ulcer Cleansing Rinsed/ Rinsed/ Irrigated with Irrigated with Saline Saline -Foul Odor after Cleansing No -Primary Dressing Applied Promogran Promogran Shakira Matter Shakira Matter -Other Dressing ABD pad -Primary Dressing Covered/Secured with Dry Gauze,Dry Dry Gauze & Gauze & Roll Roll Gauze, Gauze,Secured Secured with with Tape Tape -Promogran Shakira Matter 1 1 Treatment Response Procedure Tolerated Well Pain Scale: 0-10 Numeric Is Patient Pain Free? 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 Patient seen and evaluated Ulceration site demonstrates no localized signs of infection or palpable fluctuance.?They are continuing to apply Shakira to the ulcerative site and there is yellow fibrotic tissue in the wound bed today. Wound measures 1.0 cm x 1.3 cm x 0.1 cm. Ulcerative site sharply debrided with Misonix and a 3 mm curette to patient tolerance in the clinical panel above. Ulceration is making good progress in healing and is granulating in well. Shakira applied to the wound bed today with dry sterile dressing.? They are to change dressing daily. I will seek approval of an epi fix graft to apply at next visit. Due to her son pushing out visits and the thickness of fibrotic tissue at each visit I will continue Misonix debridement at next visit. I discussed the importance of continued offloading of the right heel with soft foam offloading boots while she is in her hospital bed sleeping. Patient and son voiced understanding of this. I will continue to follow and monitor her for any signs and changes as she continues to dress with Shakira daily. I discussed with the patient and her son signs of a progressing infection.? They are to observe for any redness that moves up the leg, purulent drainage from the wound site, malodor from the wound site, or if she experiences any nausea, vomiting, fever, chills that these are signs of a progressing infection and she is to report to the ED.? Patient and [id number] voiced understanding of this. 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 I answered all the patient's questions.? To return to the wound healing center in 3 weeks or call sooner if the patient has any questions or concerns. ? Note: [employer] speech recognition hauling contractor software was used to create portions of this document. Sound-alike and misspelled words, as well as other hauling contractor errors may be contained in the documentation.
== END 2022-03-04 23:59 | disposition home or self-care (01) ==
LOC: WC 10:45
PROVIDERS: PCP Preventive Medicine Occupational Medicine; Visit Provider Student in an Organized Health Care Education/Training Program
DX: L89.613 Pressure ulcer of right heel, stage 3 (principal); E11.42 Type 2 diabetes mellitus with diabetic polyneuropathy; Z96.649 Presence of unspecified artificial hip joint
CPT/HCPCS: 11042

== ENCOUNTER 2022-03-22 10:56 | Outpatient (RCR) | payer MEDICARE, OTHER, SELFPAY ==
[2022-03-05 00:27] VITALS: BP 100/57; PULSE 74; RESP 18; TEMP 36.3
[2022-03-22 11:06] VITALS: BP 124/75; PULSE 68; TEMP 36.1
--- NOTE | 2022-03-22 15:33 | PN.PCM_ITS ---
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 Following replacement of her hip she underwent therapy at [facility] where the therapist noticed some cracking on her right heel. Patient's son looked at the right heel and noticed a dry darkened eschar at the posterior aspect of the of the heel. Her son states that his mom does not wear any shoes or things that rub the back of her heel. He states that she sits in a recliner with her feet dangling off the edge with no pressure to the heel. He states when she sleeps it is in a hospital bed and she will occasionally dangle the right foot off of the bed. They were instructed by the therapist to be seen in the wound care center for close following. She admits to being a diabetic and demonstrates no localized signs of infection about the left heel and denies any constitutional symptoms. Subjective Subjective This is an 87-year-old female who presents to the wound care center for follow- up of a right plantar heel ulceration.? She is accompanied today by her son.? He states they are continuing to change dressings daily with Shakira and he has noticed the wound is getting smaller.? They have also been offloading with foam waffle boots in her bed at night.? She denies any constitutional symptoms today.? She has no other complaints today. Objective Data Objective Data Vital Signs: Vital Signs Temp Pulse Resp BP 97.0 F L 68 18 124/75 H 03/22/22 11:06 03/22/22 11:06 03/05/22 00:27 03/22/22 11:06 Physical Exam Const alert, oriented x3 and no apparent distress General Appearance: cooperative and comfortable HEENT normocephalic Eyes General Eye: normal appearance of both eyes Neck General: normal visual inspection Lymph Lymphatic: no lymphadenopathy noted and no lymphedema noted Resp normal respiratory effort Cardio regular rate and regular rhythm Extremity normal capillary refill, no joint enlargement, no calf tenderness and no pedal edema Peripheral Pulses: Yes posterior tibial pulses present and dorsalis pedis pulses present Skin no rashes or lesions noted, skin turgor normal and no jaundice Skin Narrative: Skin is thin/atrophic Wound Narrative: Right plantar heel decubitus ulceration demonstrates healthy granular wound bed with rolled wound edges.? No localized erythema, no malodor, no purulent drainage, or other localized signs of infection.? Ulcerative site demonstrates no palpable fluctuance or crepitus within the tissue.? No pain to palpation of the ulcerative wound bed.? There is pain to palpation surrounding the ulcerative rim.? Surrounding skin is intact/atrophic and healthy appearing. Neuro oriented x3 and moves all extremities Debridement Note Debridement Note Wound debrided: Right heel decubitus ulceration Laterality: Right Wound Grade/Stage: Rasmussen stage III Type of Debridement: Excisional debridement Anesthesia Used: 5% Lidocaine Gel Depth: Down to and including healthy tissue and in the subcutaneous layer Percentage of wound debrided: 100 Instrument Used: - (Misonix) Tissue Removed: Fibrous, devitalized subcutaneous, biofilm, slough Severity: Fat Layer Exposed Amount of bleeding with debridement: Mild Bleeding Controlled with: Compression and gauze Patient tolerated procedure: Patient tolerated procedure well Post-Debridement Measurements and Additional Note: Post-Debridement Measurements/Treatment RADHA - Nurse 1 - General Ulcer Assessment Start: 03/22/22 11:06 Freq: Status: Active Protocol: AYSE Activity Type Activity Date Activity User E-sign Co-sign Detail Recorded Client Recorded Date Recorded By Document 03/22/22 11:06 JONO [id number] 03/22/22 11:07 JONO 03/22/22 11:06 - Today's Visit Information Type of service Follow-up Visit (Physician/WIRE DRAWING SETTER ) Arrival Mode Wheelchair Patient Identification Verified (Name & Yes ) Vital Signs Temperature (97.8 F-99.1 F) 97.0 F L Temperature Source Temporal Pulse Rate (60-100) 68 Pulse Location Monitor Blood Pressure (90/60-120/80) 124/75 H Blood Pressure Mean (mm Hg) 91 Source Monitor Position Sitting Blood Pressure Location Left Arm History Since Last Visit- (Skip if this is Patient's initial visit) Have you changed medications since your No last visit? Any new allergies or adverse reactions No Had a fall/change in ADL's that may No increase risk of falls Signs or symptoms of abuse and/or No neglect since last visit Have you been in the hospital since your No last visit? Has dressing in place as prescribed Yes Has compression in place as prescribed N/A Has offloadiing in place as prescribed N/A Experienced any changes in pain level or No management Left Footwear Regular Shoe Right Footwear Regular Shoe Pain Scale: 0-10 Numeric Is Patient Pain Free? Yes - Nurse 1 - General Ulcer Measurement Start: 03/22/22 11:06 Freq: Status: Active Protocol: Activity Type Activity Date Activity User E-sign Co-sign Detail Recorded Client Recorded Date Recorded By Document 03/22/22 11:06 JONO [id number] 03/22/22 11:07 JONO 03/22/22 11:06 Wound Center Nurse 1 #1 Right Heel Cluster -Current Size (cm) - Length 0.5 -Current Size (cm) - Width 0.4 -Current Size (cm) - Depth 0.1 -Total Square Cm 0.20 -Exudate Amt None Present -Wound Margin Distinct, Outline Attached -Granulation Amt None Present (0 %) -Texture (Kendy-wound Skin Appearance) Assessed, Scarring -Moisture (Kendy-wound Skin Appearance) No Abnormality, Assessed -Color (Kendy-wound Skin Appearance) No Abnormality, Assessed -Temperature (Kendy-wound Skin No Abnormality Appearance) (Pt Warm) -Tenderness on Palpation (Kendy-wound No Skin Appearance) -Ulcer Cleansing Rinsed/ Irrigated with Saline -Foul Odor after Cleansing No -Anesthetic Used 5% Lidocaine Gel RADHA - Nurse 2 - General Ulcer CM Notes Start: 03/22/22 11:06 Freq: Status: Active Protocol: Activity Type Activity Date Activity User E-sign Co-sign Detail Recorded Client Recorded Date Recorded By Document 03/22/22 12:49 KENTRELL [id number] 03/22/22 12:50 PL 03/22/22 12:49 Wound Center Nurse 2 -Time 11:39 -Correct Patient Yes -Correct Side, Site, Position Yes -Correct Procedure Yes -Procedure Performed Yes -Type of Procedure Debridement -Clinical Debridement Subcutaneous -Tissue Removed Subcutaneous -Post Debridement (cm) - Length 0.5 -Post Debridement (cm) - Width 0.8 -Post Debridement (cm) - Depth 0.1 -Total Square (Post) (cm) 0.40 -Area of Debridement (cm) - Length 0.5 -Area of Debridement (cm) - Width 0.8 -Total Square (Area) (cm) 0.40 -Tunneling No -Undermining/Tunneling No -Circular Undermining No -Wound/Ulcer Outcome Not Healed -Ulcer Cleansing Rinsed/ Irrigated with Saline -Foul Odor after Cleansing No -Bioengineered Tissue No -Bleeding Controlled with Pressure -Treatment Response Procedure Tolerated Well -Debridement - Subq, 1st 20sq cm Yes Pain Scale: 0-10 Numeric Is Patient Pain Free? Yes - Nurse 3 - General Ulcer D/C NN Start: 03/22/22 11:06 Freq: Status: Active Protocol: Activity Type Activity Date Activity User E-sign Co-sign Detail Recorded Client Recorded Date Recorded By Document 03/22/22 12:25 ALBER [id number] 03/22/22 12:25 ALBER 03/22/22 12:25 Wound Care Nurse 3 #1 Right Heel Cluster -Ulcer Cleansing Rinsed/ Irrigated with Saline -Foul Odor after Cleansing No -Negative Pressure Wound Therapy N/A -Primary Dressing Applied Promogran -Promogran 1 Pain Scale: 0-10 Numeric Is Patient Pain Free? 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 Patient seen and evaluated Ulceration site demonstrates no localized signs of infection or palpable fluctuance.?They are continuing to apply Shakira to the ulcerative site and there is scant yellow fibrotic tissue in the wound bed today.? Wound measures 0.5 cm x 0.8 cm x 0.1 cm.? Ulcerative site sharply debrided with Misonix and a 3 mm curette to patient tolerance in the clinical panel above.? Ulceration is making good progress in healing and is granulating in well with continued reduction in size versus previous visit. Shakira applied to the wound bed today with dry sterile dressing.? They are to change dressing daily. Due to her son pushing out visits and presence of fibrotic tissue and pain at each visit I will continue Misonix debridement. I discussed the importance of continued offloading of the right heel with soft foam offloading boots while she is in her hospital bed sleeping. Patient and son voiced understanding of this. Her son is to continue to monitor her for any signs and changes as he continues to dress with Shakira daily. I discussed with the patient and her son signs of a progressing infection.? They are to observe for any redness that moves up the leg, purulent drainage from the wound site, malodor from the wound site, or if she experiences any nausea, vomiting, fever, chills that these are signs of a progressing infection and she is to report to the ED.? Patient and snjilbhk-hq-hrr voiced understanding of this. 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 I answered all the patient's questions.? To return to the wound healing center in 3 weeks or call sooner if the patient has any questions or concerns. ? Note: [employer] speech recognition web development consultant software was used to create portions of this document. Sound-alike and misspelled words, as well as other web development consultant errors may be contained in the documentation.
== END 2022-04-04 23:59 | disposition home or self-care (01) ==
LOC: WC 10:56
PROVIDERS: PCP Preventive Medicine Occupational Medicine; Visit Provider Student in an Organized Health Care Education/Training Program
DX: L89.613 Pressure ulcer of right heel, stage 3 (principal); E11.42 Type 2 diabetes mellitus with diabetic polyneuropathy; Z96.649 Presence of unspecified artificial hip joint
CPT/HCPCS: 11042

== ENCOUNTER 2022-05-03 11:00 | Outpatient (RCR) | payer MEDICARE, OTHER, SELFPAY ==
[2022-04-05 00:29] VITALS: BP 124/75; PULSE 68; RESP 18; TEMP 36.1
--- NOTE | 2022-04-12 11:37 | PN.PCM_ITS ---
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 Following replacement of her hip she underwent therapy at [facility] where the therapist noticed some cracking on her right heel. Patient's son looked at the right heel and noticed a dry darkened eschar at the posterior aspect of the of the heel. Her son states that his mom does not wear any shoes or things that rub the back of her heel. He states that she sits in a recliner with her feet dangling off the edge with no pressure to the heel. He states when she sleeps it is in a hospital bed and she will occasionally dangle the right foot off of the bed. They were instructed by the therapist to be seen in the wound care center for close following. She admits to being a diabetic and demonstrates no localized signs of infection about the left heel and denies any constitutional symptoms. Subjective Subjective This is an 87-year-old female who presents to the wound care center for follow- up of a right plantar heel decubitus ulceration.? She is accompanied today by her son.? He states they are continuing to change dressings daily with Shakira and he has noticed continued reduction in her wound size.? They have also been offloading with foam waffle boots in her bed at night.? She denies any constitutional symptoms today.? She has no other complaints today. Objective Data Objective Data Vital Signs: Vital Signs Temp Pulse Resp BP 97.0 F L 68 18 124/75 H 04/05/22 00:29 04/05/22 00:29 04/05/22 00:29 04/05/22 00:29 Physical Exam Const alert, oriented x3 and no apparent distress General Appearance: cooperative HEENT normocephalic Eyes General Eye: normal appearance of both eyes Neck General: normal visual inspection Lymph Lymphatic: no lymphadenopathy noted and no lymphedema noted Resp normal respiratory effort Cardio regular rate and regular rhythm Extremity normal capillary refill, no joint enlargement, no calf tenderness and no pedal edema Peripheral Pulses: Yes posterior tibial pulses present and dorsalis pedis pulses present Skin no rashes or lesions noted, skin turgor normal and no jaundice Skin Narrative: Skin thin/atrophic Wound Narrative: Right plantar heel decubitus ulceration demonstrates healthy granular wound bed with rolled wound edges.? No localized erythema, no malodor, no purulent drainage, or other localized signs of infection.? Ulcerative site demonstrates no palpable fluctuance or crepitus within the tissue.? No pain to palpation of the ulcerative wound bed.? There is pain to palpation surrounding the ulcerative rim proximally.? Surrounding skin is intact/atrophic and healthy appearing. Neuro oriented x3 and moves all extremities Debridement Note Debridement Note Wound debrided: Right heel decubitus ulceration Laterality: Right Wound Grade/Stage: Rasmussen stage III Type of Debridement: Excisional debridement Anesthesia Used: 5% Lidocaine Gel Depth: Down to and including healthy tissue and in the subcutaneous layer Percentage of wound debrided: 100 Instrument Used: #15 blade and - (Misonix) Tissue Removed: Fibrous, devitalized subcutaneous, biofilm, slough Severity: Fat Layer Exposed Amount of bleeding with debridement: Mild Bleeding Controlled with: Compression and gauze Patient tolerated procedure: Patient tolerated procedure well Post-Debridement Measurements and Additional Note: Post-Debridement Measurements/Treatment WC - Nurse 3 - General Ulcer D/C NN Start: 04/12/22 11:32 Freq: Status: Active Protocol: Activity Type Activity Date Activity User E-sign Co-sign Detail Recorded Client Recorded Date Recorded By Document 04/12/22 11:32 ALBER [id number] 04/12/22 11:33 ALBER 04/12/22 11:32 Wound Care Nurse 3 #1 Right Heel Cluster -Ulcer Cleansing Rinsed/ Irrigated with Saline -Foul Odor after Cleansing No -Negative Pressure Wound Therapy N/A -Primary Dressing Applied Promogran Shakira Matter -Primary Dressing Covered/Secured with Dry Gauze & Roll Gauze, Secured with Tape -Promogran Shakira Matter 1 Pain Scale: 0-10 Numeric Is Patient Pain Free? Yes WC - Visit Discharge Discharge Condition Stable Ambulatory Status Wheelchair Transportation Private Auto Accompanied by son Medication Reconcilliation completed & Yes provided to patient/care provider Clinical Summary of Care Provided Yes Assessment/Plan Assessment/Plan (1) Decubitus ulcer of right heel, stage 3: CODE(S): L89.613 - Pressure ulcer of right heel, stage 3 (2) Diabetes mellitus with diabetic polyneuropathy: CODE(S): E11.42 - Type 2 diabetes mellitus with diabetic polyneuropathy PLAN: Plan This is an 86-year-old female seen in the wound care center for a decubitus ulcer of the right heel, stage III complicated by 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 Patient seen and evaluated Ulceration site demonstrates no localized signs of infection or palpable fluctuance.?They are continuing to apply Shakira to the ulcerative site and there is scant yellow fibrotic tissue in the wound bed today.? Wound measures 0.5 cm x 0.3 cm x 0.1 cm.? Ulcerative site sharply debrided with Misonix and a #15 blade to patient tolerance in the clinical panel above.? Ulceration is making good progress in healing and is granulating in well with continued reduction in size versus previous visit. Shakira applied to the wound bed today with dry sterile dressing.? They are to change dressing daily. I discussed the importance of continued offloading of the right heel with soft foam offloading boots while she is in her hospital bed sleeping. Patient and son voiced understanding of this. Her son is to continue to monitor her for any signs and changes as he continues to dress with Shakira daily. I discussed with the patient and her son signs of a progressing infection.? They are to observe for any redness that moves up the leg, purulent drainage from the wound site, malodor from the wound site, or if she experiences any nausea, vomiting, fever, chills that these are signs of a progressing infection and she is to report to the ED.? Patient and [id number] voiced understanding of this. 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 I answered all the patient's questions.? To return to the wound healing center in 3 weeks or call sooner if the patient has any questions or concerns. ? Note: [employer] speech recognition partner integration planner software was used to create portions of this document. Sound-alike and misspelled words, as well as other partner integration planner errors may be contained in the documentation.
[2022-05-03 11:10] VITALS: BP 95/59; PULSE 78; TEMP 35.7
--- NOTE | 2022-05-03 12:18 | PCM.WC.PN ---
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 Following replacement of her hip she underwent therapy at [facility] where the therapist noticed some cracking on her right heel. Patient's son looked at the right heel and noticed a dry darkened eschar at the posterior aspect of the of the heel. Her son states that his mom does not wear any shoes or things that rub the back of her heel. He states that she sits in a recliner with her feet dangling off the edge with no pressure to the heel. He states when she sleeps it is in a hospital bed and she will occasionally dangle the right foot off of the bed. They were instructed by the therapist to be seen in the wound care center for close following. She admits to being a diabetic and demonstrates no localized signs of infection about the left heel and denies any constitutional symptoms. Subjective Subjective This is an 87-year-old female who presents to the wound care center for follow-up of a right plantar heel decubitus ulceration.? She is accompanied today by her son.? He states they are continuing to change dressings daily with Shakira and he has noticed continued reduction in her wound size and feels the wound is almost closed.? They have also been offloading with foam waffle boots in her bed at night.? She denies any constitutional symptoms today.? She has no other complaints today. Objective Data Objective Data Vital Signs: Vital Signs Temp Pulse Resp BP 96.2 F L 78 18 95/59 L 05/03/22 11:10 05/03/22 11:10 04/05/22 00:29 05/03/22 11:10 Physical Exam Const alert, oriented x3 and no apparent distress General Appearance: cooperative HEENT normocephalic Eyes General Eye: normal appearance of both eyes Neck General: normal visual inspection Lymph Lymphatic: no lymphadenopathy noted and no lymphedema noted Resp normal respiratory effort Cardio regular rate and regular rhythm Extremity normal capillary refill, no joint enlargement, no calf tenderness and no pedal edema Skin no rashes or lesions noted, skin turgor normal and no jaundice Skin Narrative: Skin thin/atrophic Wound Narrative: Right plantar heel decubitus ulceration demonstrates healthy granular wound bed with rolled wound edges.? No localized erythema, no malodor, no purulent drainage, or other localized signs of infection.? Ulcerative site demonstrates no palpable fluctuance or crepitus within the tissue.? No pain to palpation of the ulcerative wound bed.? There is pain to palpation surrounding the ulcerative rim proximally.? Surrounding skin is intact/atrophic and healthy appearing. Neuro oriented x3 and moves all extremities Debridement Note Debridement Note Wound debrided: Right heel decubitus ulceration Laterality: Right Wound Grade/Stage: Rasmussen stage III Type of Debridement: Excisional debridement Anesthesia Used: 5% Lidocaine Gel Depth: Down to and including healthy tissue and in the subcutaneous layer Percentage of wound debrided: 100 Instrument Used: - (1 mm curette) Tissue Removed: Fibrous, devitalized subcutaneous, biofilm, slough Severity: Fat Layer Exposed Amount of bleeding with debridement: Mild Bleeding Controlled with: Compression and gauze Patient tolerated procedure: Patient tolerated procedure well Post-Debridement Measurements and Additional Note: Post-Debridement Measurements/Treatment RADHA - Nurse 1 - General Ulcer Assessment Start: 04/12/22 11:32 Freq: Status: Active Protocol: AYSE Activity Type Activity Date Activity User E-sign Co-sign Detail Recorded Client Recorded Date Recorded By Document 05/03/22 11:10 ALBER [id number] 05/03/22 11:12 ALBER 05/03/22 11:10 RADHA - Today's Visit Information Type of service Follow-up Visit (Physician/SALT OPERATOR ) Arrival Mode Wheelchair Patient Identification Verified (Name & Yes ) Patient Requires Transmission-Based No Precautions Safety Precautions NA Vital Signs Temperature (97.8 F-99.1 F) 96.2 F L Temperature Source Temporal Pulse Rate (60-100) 78 Pulse Location Monitor Blood Pressure (90/60-120/80) 95/59 L Blood Pressure Mean (mm Hg) 71 Source Monitor History Since Last Visit- (Skip if this is Patient's initial visit) Have you changed medications since your No last visit? Any new allergies or adverse reactions No Had a fall/change in ADL's that may No increase risk of falls Signs or symptoms of abuse and/or No neglect since last visit Have you been in the hospital since your No last visit? Has dressing in place as prescribed Yes Has compression in place as prescribed N/A Has offloadiing in place as prescribed N/A Experienced any changes in pain level or No management Left Footwear Regular Shoe Right Footwear Regular Shoe Pain Scale: 0-10 Numeric Is Patient Pain Free? Yes - Nurse 1 - General Ulcer Measurement Start: 04/12/22 11:32 Freq: Status: Active Protocol: Activity Type Activity Date Activity User E-sign Co-sign Detail Recorded Client Recorded Date Recorded By Document 05/03/22 11:10 AK [id number] 05/03/22 11:12 AK 05/03/22 11:10 Wound Center Nurse 1 #1 Right Heel Cluster -Combined with other wound No -Current Size (cm) - Length 0.3 -Current Size (cm) - Width 0.4 -Current Size (cm) - Depth 0.1 -Total Square Cm 0.12 -Photo Taken No -Tunneling No -Undermining/Tunneling No -Circular Undermining No -Change in Wound Grade/Stage No -Exudate Amt None Present -Wound Margin Distinct, Outline Attached -Granulation Quality Pale,[place] -Slough/Fibrin Yes -Necrosis Amt Small (1-33%) -Necrotic Tissue Type Adherent Slough -Structure Exposed N/A -Texture (Kendy-wound Skin Appearance) Assessed,Callus -Moisture (Kendy-wound Skin Appearance) No Abnormality, Assessed -Color (Kendy-wound Skin Appearance) No Abnormality, Assessed -Temperature (Kendy-wound Skin No Abnormality Appearance) (Pt Warm) -Tenderness on Palpation (Kendy-wound No Skin Appearance) -Ulcer Cleansing Rinsed/ Irrigated with Saline -Foul Odor after Cleansing No -Anesthetic Used 5% Lidocaine Gel RADHA - Nurse 2 - General Ulcer CM Notes Start: 04/12/22 11:32 Freq: Status: Active Protocol: Activity Type Activity Date Activity User E-sign Co-sign Detail Recorded Client Recorded Date Recorded By Document 04/12/22 12:29 PL [id number] 04/12/22 12:29 Document 05/03/22 12:02 [id number] 05/03/22 12:03 PL 04/12/22 05/03/22 12:29 12:02 Wound Center Nurse 2 #1 Right Heel Cluster -Time 11:06 11:14 -Correct Patient Yes Yes -Correct Side, Site, Position Yes Yes -Correct Procedure Yes Yes -Procedure Performed Yes Yes -Type of Procedure Debridement Debridement -Clinical Debridement Subcutaneous Subcutaneous -Tissue Removed Subcutaneous Subcutaneous -Post Debridement (cm) - Length 0.5 0.1 -Post Debridement (cm) - Width 0.3 0.1 -Post Debridement (cm) - Depth 0.1 0.1 -Total Square (Post) (cm) 0.15 0.01 -Area of Debridement (cm) - Length 0.5 0.1 -Area of Debridement (cm) - Width 0.3 0.1 -Total Square (Area) (cm) 0.15 0.01 -Tunneling No No -Undermining/Tunneling No No -Circular Undermining No No -Wound/Ulcer Outcome Not Healed Not Healed -Ulcer Cleansing Rinsed/ Rinsed/ Irrigated with Irrigated with Saline Saline -Foul Odor after Cleansing No No -Bioengineered Tissue No No -Bleeding Controlled with Pressure Pressure -Treatment Response Procedure Procedure Tolerated Well Tolerated Well -Debridement - Subq, 1st 20sq cm Yes Yes Pain Scale: 0-10 Numeric Is Patient Pain Free? Yes Yes - Nurse 3 - General Ulcer D/C NN Start: 04/12/22 11:32 Freq: Status: Active Protocol: Activity Type Activity Date Activity User E-sign Co-sign Detail Recorded Client Recorded Date Recorded By Document 04/12/22 11:32 AK [id number] 04/12/22 11:33 AK Document 05/03/22 11:20 KR [id number] 05/03/22 11:21 KR 04/12/22 05/03/22 11:32 11:20 Wound Care Nurse 3 #1 Right Heel Cluster -Ulcer Cleansing Rinsed/ Rinsed/ Irrigated with Irrigated with Saline Saline -Foul Odor after Cleansing No -Negative Pressure Wound Therapy N/A -Primary Dressing Applied Promogran C Hydrogel ($) Shakira Matter -Primary Dressing Covered/Secured with Dry Gauze & Dry Gauze, Roll Gauze, Secured with Secured with Tape Tape -Promogran Shakira Matter 1 Pain Scale: 0-10 Numeric Is Patient Pain Free? Yes Yes WC - Visit Discharge Discharge Condition Stable Stable Ambulatory Status Wheelchair Wheelchair Transportation Private Auto Private Auto Accompanied by son son Medication Reconcilliation completed & Yes provided to patient/care provider Clinical Summary of Care Provided Yes Assessment/Plan Assessment/Plan (1) Decubitus ulcer of right heel, stage 3: CODE(S): L89.613 - Pressure ulcer of right heel, stage 3 (2) Diabetes mellitus with diabetic polyneuropathy: CODE(S): E11.42 - Type 2 diabetes mellitus with diabetic polyneuropathy PLAN: Plan This is an 86-year-old female seen in the wound care center for a decubitus ulcer of the right heel, stage III complicated by 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 Patient seen and evaluated Ulceration site demonstrates no localized signs of infection or palpable fluctuance.?They are continuing to apply Shakira to the ulcerative site and there is a small proximal pinpoint opening with surrounding hyperkeratotic tissue.? Wound measures 0.1 cm x 0.1 cm x 0.1 cm.? Ulcerative site sharply debrided with 1 mm curette to patient tolerance in the clinical panel above.? Ulceration is making good progress in healing and is granulating in well with continued reduction in size versus previous visit. This ulceration is almost healed. Hydrogel applied to the wound bed today with dry sterile dressing.? They are to change dressing daily. I discussed the importance of continued offloading of the right heel with soft foam offloading boots while she is in her hospital bed sleeping. Patient and son voiced understanding of this. Her son is to continue to monitor her for any signs and changes as he continues to dress with Shakira daily. I discussed with the patient and her son signs of a progressing infection.? They are to observe for any redness that moves up the leg, purulent drainage from the wound site, malodor from the wound site, or if she experiences any nausea, vomiting, fever, chills that these are signs of a progressing infection and she is to report to the ED.? Patient and [id number] voiced understanding of this. 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 I answered all the patient's questions.? To return to the wound healing center in 3 weeks or call sooner if the patient has any questions or concerns. ? Note: [employer] [place] speech recognition plisse machine operator helper software was used to create portions of this document. Sound-alike and misspelled words, as well as other plisse machine operator helper errors may be contained in the documentation.
== END 2022-05-04 23:59 | disposition home or self-care (01) ==
LOC: WC 11:00
PROVIDERS: PCP Preventive Medicine Occupational Medicine; Visit Provider Student in an Organized Health Care Education/Training Program
DX: L89.613 Pressure ulcer of right heel, stage 3 (principal); E11.42 Type 2 diabetes mellitus with diabetic polyneuropathy
CPT/HCPCS: 11042

== ENCOUNTER 2022-05-24 11:00 | Outpatient (RCR) | payer MEDICARE, OTHER, SELFPAY ==
[2022-05-05 01:19] VITALS: BP 95/59; PULSE 78; RESP 18; TEMP 35.7
[2022-05-24 11:24] VITALS: BP 150/72; PULSE 102; TEMP 35.6
--- NOTE | 2022-05-24 11:29 | PN.PCM_ITS ---
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 Following replacement of her hip she underwent therapy at [facility] where the therapist noticed some cracking on her right heel. Patient's son looked at the right heel and noticed a dry darkened eschar at the posterior aspect of the of the heel. Her son states that his mom does not wear any shoes or things that rub the back of her heel. He states that she sits in a recliner with her feet dangling off the edge with no pressure to the heel. He states when she sleeps it is in a hospital bed and she will occasionally dangle the right foot off of the bed. They were instructed by the therapist to be seen in the wound care center for close following. She admits to being a diabetic and demonstrates no localized signs of infection about the left heel and denies any constitutional symptoms. Subjective Subjective This is an 87-year-old female who presents to the wound care center for follow- up of a right plantar heel decubitus ulceration.? She is accompanied today by her son.?He states they are continuing to change dressings daily with Shakira and he has noticed continued reduction in her wound size and feels the wound is closed today.? They have also been continuing to offloading with foam waffle boots in her bed at night.? She denies any constitutional symptoms today.? She has no other complaints today. Objective Data Objective Data Vital Signs: Vital Signs Temp Pulse Resp BP 96.0 F L 102 H 18 150/72 H 05/24/22 11:24 05/24/22 11:24 05/05/22 01:19 05/24/22 11:24 Physical Exam Const alert, oriented x3 and no apparent distress General Appearance: cooperative HEENT normocephalic Eyes General Eye: normal appearance of both eyes Neck General: normal visual inspection Lymph Lymphatic: no lymphadenopathy noted and no lymphedema noted Resp normal respiratory effort Cardio regular rate Extremity normal capillary refill, no joint enlargement, no calf tenderness and no pedal edema Skin no rashes or lesions noted, skin turgor normal and no jaundice Skin Narrative: Skin thin/atrophic Wound Narrative: Right plantar heel decubitus ulceration demonstrates slight hyperkeratotic tissue with no underlying ulceration.? No localized erythema, no malodor, no purulent drainage, or other localized signs of infection.? Callus site demonstrates no palpable fluctuance, bogginess, or drainage.?There is pain to palpation surrounding the healed ulcerative site/callus.? Surrounding skin is intact/atrophic and healthy appearing. Neuro moves all extremities Debridement Note Debridement Note No debridement was completed: No debridement was completed today Post-Debridement Measurements and Additional Note: Post-Debridement Measurements/Treatment - Nurse 1 - General Ulcer Assessment Start: 05/24/22 11:24 Freq: Status: Active Protocol: AYSE Activity Type Activity Date Activity User E-sign Co-sign Detail Recorded Client Recorded Date Recorded By Document 05/24/22 11:24 JONO [id number] 05/24/22 11:28 JONO 05/24/22 11:24 WC - Today's Visit Information Type of service Follow-up Visit (Physician/MANAGER OF [employer] ) Arrival Mode Ambulatory Patient Identification Verified (Name & Yes ) Vital Signs Temperature (97.8 F-99.1 F) 96.0 F L Temperature Source Temporal Pulse Rate (60-100) 102 H Pulse Location Monitor Respiratory rate source Ausculation Blood Pressure (90/60-120/80) 150/72 H Blood Pressure Mean (mm Hg) 98 Source Monitor Position Sitting Blood Pressure Location Right Arm History Since Last Visit- (Skip if this is Patient's initial visit) Have you changed medications since your No last visit? Any new allergies or adverse reactions No Had a fall/change in ADL's that may No increase risk of falls Signs or symptoms of abuse and/or No neglect since last visit Have you been in the hospital since your No last visit? Has dressing in place as prescribed Yes Has compression in place as prescribed Yes Has offloadiing in place as prescribed N/A Experienced any changes in pain level or No management Left Footwear Regular Shoe Right Footwear Regular Shoe Pain Scale: 0-10 Numeric Is Patient Pain Free? Yes - Nurse 1 - General Ulcer Measurement Start: 05/24/22 11:24 Freq: Status: Active Protocol: Activity Type Activity Date Activity User E-sign Co-sign Detail Recorded Client Recorded Date Recorded By Document 05/24/22 11:24 KR [id number] 05/24/22 11:28 JONO 05/24/22 11:24 Wound Center Nurse 1 #1 Right Heel Cluster -Current Size (cm) - Length 0.1 -Current Size (cm) - Width 0.1 -Current Size (cm) - Depth 0.1 -Total Square Cm 0.01 -Exudate Amt Small -Exudate Type Serosanguineous -Wound Margin Distinct, Outline Attached -Granulation Amt None Present (0 %) -Necrosis Amt None Present (0 %) -Texture (Kendy-wound Skin Appearance) Assessed, Scarring -Moisture (Kendy-wound Skin Appearance) No Abnormality, Assessed -Color (Kendy-wound Skin Appearance) No Abnormality, Assessed -Tenderness on Palpation (Kendy-wound No Skin Appearance) -Ulcer Cleansing Rinsed/ Irrigated with Saline -Foul Odor after Cleansing No -Anesthetic Used 5% Lidocaine Gel Assessment/Plan Assessment/Plan (1) Decubitus ulcer of right heel, stage 3: CODE(S): L89.613 - Pressure ulcer of right heel, stage 3 (2) Diabetes mellitus with diabetic polyneuropathy: CODE(S): E11.42 - Type 2 diabetes mellitus with diabetic polyneuropathy PLAN: Plan This is an 86-year-old female seen in the wound care center for a decubitus ulcer of the right heel, stage III complicated by 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 Patient seen and evaluated Ulceration site demonstrates hyperkeratotic tissue with healed ulceration. No localized signs of infection or palpable fluctuance.?Hyperkeratotic tissue debrided sharply with 313 blade to patient tolerance. The ulcerative site has healed today and I recommend application of urea 42% cream to the hyperkeratotic tissue at the posterior heel. Despite healed ulceration, I discussed the importance of continued offloading of the right heel with soft foam offloading boots while she is in her hospital bed sleeping. Patient and son voiced understanding of this. The following work up and care recommendations were made: Dressing: No dressing. Apply Urea 42% cream daily to callus tissue. 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 I answered all the patient's questions.?Ulcerative site has healed and she will be discharged from the wound healing center. She is to call if the she has any problems, questions, or concerns. ? Note: [employer] speech recognition emergency service restorer software was used to create portions of this document. Sound-alike and misspelled words, as well as other emergency service restorer errors may be contained in the documentation.
== END 2022-06-04 23:59 | disposition home or self-care (01) ==
LOC: WC 11:00
PROVIDERS: PCP Preventive Medicine Occupational Medicine; Visit Provider Student in an Organized Health Care Education/Training Program
DX: L89.613 Pressure ulcer of right heel, stage 3 (principal); E11.42 Type 2 diabetes mellitus with diabetic polyneuropathy
CPT/HCPCS: 99213; G0463